=== PATIENT | female | born 1995 | race Caucasian/White ===

== ENCOUNTER 2018-05-10 10:52 | Inpatient (IN) | payer OTHER ==
[2018-05-10] MEDS ORDERED: SODIUM CHLORIDE 0.9% 1,000 ML IV STA (11:36)
[2018-05-10] MEDS ORDERED: MAG HYDROX/AL HYDROX/SIMETH 30 ML CUP PO STA (11:47)
[2018-05-10] MEDS ORDERED: SODIUM CHLORIDE 0.9% 1,000 ML IV ONE (11:47)
[2018-05-10] MEDS ORDERED: METOCLOPRAMIDE 5 MG/ML 2 ML VIAL IVP STA (11:55)
--- NOTE | 2018-05-10 11:57 | ED ---
Abdominal Pain HPI - General Chief Complaint: Abdominal Pain Stated Complaint: upper side pain/19wks Time Seen by Provider: 05/10/18 11:36 Source: patient, RN notes reviewed Mode of arrival: ambulatory Limitations: no limitations - History of Present Illness Initial Comments: This a 23-year-old female presents emergency Department chief complaint of upper abdominal pain. Patient's that she's had on-and-off pain since . Patient states she's been vomiting for 2 days. Patient is currently A0 18 weeks with [employer] Dr. Otoole. Patient states that her [employer] did not feel this is related referred to her PCP who is concerned about her gallbladder. She has had some issues with her gallbladder in the past but improved when she was . Patient states that is not worsen. Patient does admit to a bad taste in her mouth and increased hiccups and reflux. Patient has no dysuria no hematuria denies any diarrhea constipation. Patient has no vaginal bleeding or vaginal discharge - Related Data Home Medications Medication Instructions Recorded Confirmed Acetaminophen Tab [Tylenol Tab] 325 mg PO Q4H PRN 05/10/18 05/10/18 Bca-Tdbs-Shakm Acid 1 cap PO HS 05/10/18 05/10/18 [-U Capsule (formulary)] Allergies Allergy/AdvReac Type Severity Reaction Status Date / Time amoxicillin Allergy Rash/Hives Verified 05/10/18 11:35 latex Allergy Unknown Verified 05/10/18 11:35 methylprednisolone Allergy Rapid Verified 05/10/18 11:35 [From Medrol] Heart Rate Review of Systems ROS Statement: Those systems with pertinent positive or pertinent negative responses have been documented in the HPI. ROS Other: All systems not noted in ROS Statement are negative. Past Medical History Past Medical History: Asthma Additional Past Medical History / Comment(s): Low blood sugar History of Any Multi-Drug Resistant Organisms: None Reported Past Surgical History: Tonsillectomy Past Psychological History: No Psychological Hx Reported Smoking Status: Former smoker Past Alcohol Use History: None Reported Past Drug Use History: None Reported General Exam Limitations: no limitations General appearance: alert, in no apparent distress Head exam: Present: atraumatic, normocephalic, normal inspection Respiratory exam: Present: normal lung sounds bilaterally. Absent: respiratory distress, wheezes, rales, rhonchi, stridor Cardiovascular Exam: Present: normal rhythm, tachycardia, normal heart sounds. Absent: systolic murmur, diastolic murmur, rubs, gallop, clicks GI/Abdominal exam: Present: soft, tenderness (Moderate epigastric and right upper quadrant tenderness), normal bowel sounds. Absent: distended, guarding, rebound, rigid Back exam: Absent: CVA tenderness (R), CVA tenderness (L) Skin exam: Present: warm, dry, intact, normal color. Absent: rash Course Vital Signs 05/10/18 11:09 Temperature 99.1 F Pulse Rate 111 H Respiratory 20 Rate Blood Pressure 147/77 O2 Sat by Pulse 99 Oximetry Medical Decision Making - Medical Decision Making 23-year-old female presented from for abdominal pain. Patient is slightly improved at this time though she has also which demonstrates gallbladder stone in the neck. Patient will be admitted to Dr. Toussaint's service. - Lab Data Result diagrams: 05/10/18 11:59 05/10/18 11:59 Lab Results 05/10/18 05/10/18 05/10/18 Range/Units 11:59 11:59 11:59 WBC 16.1 H (3.8-10.6) k/uL RBC 4.17 (3.80-5.40) m/uL Hgb 12.0 (11.4-16.0) gm/dL Hct 34.6 (34.0-46.0) % MCV 83.1 (80.0-100.0) fL MCH 28.8 (25.0-35.0) pg MCHC 34.7 (31.0-37.0) g/dL RDW 14.0 (11.5-15.5) % Plt Count 293 (150-450) k/uL Neutrophils % 77 % Lymphocytes % 17 % Monocytes % 3 % Eosinophils % 1 % Basophils % 0 % Neutrophils # 12.4 H (1.3-7.7) k/uL Lymphocytes # 2.8 (1.0-4.8) k/uL Monocytes # 0.5 (0-1.0) k/uL Eosinophils # 0.2 (0-0.7) k/uL Basophils # 0.1 (0-0.2) k/uL Sodium 138 (137-145) mmol/L Potassium 4.0 (3.5-5.1) mmol/L Chloride 105 (98-107) mmol/L Carbon Dioxide 25 (22-30) mmol/L Anion Gap 8 mmol/L BUN 5 L (7-17) mg/dL Creatinine 0.44 L (0.52-1.04) mg/dL Est GFR (CKD-EPI)AfAm >90 (>60 ml/min/1.73 sqM) Est GFR (CKD-EPI)NonAf >90 (>60 ml/min/1.73 sqM) Glucose 98 (74-99) mg/dL Calcium 9.2 (8.4-10.2) mg/dL Total Bilirubin 0.5 (0.2-1.3) mg/dL AST 21 (14-36) U/L ALT 28 (9-52) U/L Alkaline Phosphatase 68 (38-126) U/L Total Protein 6.8 (6.3-8.2) g/dL Albumin 3.9 (3.5-5.0) g/dL Lipase 45 (23-300) U/L Urine Color Light Yellow Urine Appearance Cloudy H (Clear) Urine pH 7.5 (5.0-8.0) Ur Specific [place] 1.008 (1.001-1.035) Urine Protein Negative (Negative) Urine Glucose (UA) Negative (Negative) Urine Ketones Negative (Negative) Urine Blood Negative (Negative) Urine Nitrite Negative (Negative) Urine Bilirubin Negative (Negative) Urine Urobilinogen <2.0 (<2.0) mg/dL Ur Leukocyte Esterase Large H (Negative) Urine WBC 11 H (0-5) /hpf Ur Squamous Epith Cells 22 H (0-4) /hpf Amorphous Sediment Occasional H (None) /hpf Urine Bacteria Rare H (None) /hpf Urine Mucus Rare H (None) /hpf Disposition Clinical Impression: Cholelithiasis, Disposition: ADMITTED IP TO THIS [facility] Condition: Stable Referrals: Nolan Alexander MD [Primary Care Provider] - 1-2 days
--- NOTE | 2018-05-10 13:08 | US ---
EXAMINATION TYPE: US gallbladder DATE OF EXAM: 05/10/2018 COMPARISON: NONE CLINICAL HISTORY: 23-year-old female Pain. Abdomen pain and N/V x 5 days, patient is 19 weeks pregnan t TECHNIQUE: Multiple sonographic images of the right upper quadrant are obtained. FINDINGS: EXAM MEASUREMENTS: Liver Length: 15.7 cm Gallbladder Wall: 0.3 cm CBD: 0.4 cm Right Kidney: 10.3 x 4.9 x 5.4 cm [employer] Chief notes:Difficult study due to patient motion Pancreas: visualized pancreatic head and neck shows no gross abnormality. Remainder is limited by ov erlying midline bowel gas Liver: wnl Gallbladder: low levels echoes seen within neck with possible 4 mm calculus at the neck. Wall border line thickened at 0.3cm. No surrounding fluid or abnormal hydropic change at this time. Evidence for sonographic Crowe's sign: yes CBD: visualized portions wnl, limited by overlying bowel gas Right Kidney: wnl IMPRESSION: Possible 4 mm calculus at the gallbladder neck. There is borderline gallbladder wall thickening at 3 mm. Sonographic Crowe sign is also reported positive. No abnormal hydropic change or surrounding flu id seen at this time. Further clinical correlation will be needed for possible early acute cholecysti tis. Consider short interval follow-up.
[2018-05-10 13:11] LABS: Basophils # (A) 0.1 k/uL (0-0.2); Basophils % (A) 0 %; Eosinophils # (A) 0.2 k/uL (0-0.7); Eosinophils % (A) 1 %; HCT 34.6 % (34.0-46.0); Lymphocytes # (A) 2.8 k/uL (1.0-4.8); Lymphocytes % (A) 17 %; MCH 28.8 pg (25.0-35.0); MCHC 34.7 g/dL (31.0-37.0); MCV 83.1 fL (80.0-100.0); Mean Platelet Volume 7.7; Monocytes # (A) 0.5 k/uL (0-1.0); Monocytes % (A) 3 %; Neutrophils # (A) 12.4 k/uL (1.3-7.7); Neutrophils % (A) 77 %; Platelet Count 293 k/uL (150-450); RBC 4.17 m/uL (3.80-5.40); WBC 16.1 k/uL (3.8-10.6)
[2018-05-10 13:15] LABS: ALT 28 U/L (9-52); AST 21 U/L (14-36); Albumin 3.9 g/dL (3.5-5.0); Alkaline Phosphatase 68 U/L (38-126); Anion Gap 8 mmol/L; Blood Urea Nitrogen 5 mg/dL (7-17); Calcium 9.2 mg/dL (8.4-10.2); Carbon Dioxide 25 mmol/L (22-30); Chloride 105 mmol/L (98-107); Glucose 98 mg/dL (74-99); Lipase 45 U/L (23-300); Sodium 138 mmol/L (137-145); Total Bilirubin 0.5 mg/dL (0.2-1.3); Total Protein 6.8 g/dL (6.3-8.2)
[2018-05-10 13:17] LABS: Amorphous Sediment,Urine Occasional /hpf; Appearance,Urine Cloudy (Clear); Bacteria,Urine Rare /hpf; Bilirubin,Urine Negative (Negative); Blood,Urine Negative (Negative); Color,Urine Light Yellow; Glucose,Urine (UA) Negative (Negative); Ketones,Urine Negative (Negative); Leukocyte Esterase,Urine Large (Negative); Mucus,Urine Rare /hpf; Nitrite,Urine Negative (Negative); PH, Urine 7.5 (5.0-8.0); Protein,Urine Negative (Negative); Specific Gravity,Urine 1.008 (1.001-1.035); Squamous Epithelial Cell,Urine 22 /hpf (0-4); Urobilinogen,Urine <2.0 mg/dL (<2.0); WBC,Urine 11 /hpf (0-5)
[2018-05-10] MEDS ORDERED: cefTRIAXone IN SWFI 1,000 MG/10 ML SYRINGE IVP STA (13:53)
[2018-05-10] MEDS ORDERED: SODIUM CHLORIDE 0.9% 1,000 ML IV SCH (14:00)
--- NOTE | 2018-05-10 15:09 | P.GSHP ---
History of Present Illness H&P Date: 05/10/18 Chief Complaint: nausea, vomiting CHIEF COMPLAINT: nausea/vomiting HISTORY OF PRESENT ILLNESS: 23-year-old female who is 19 weeks who presented to the ER with a chief complaint of nausea and vomiting. Patient states she saw her PCP this morning who did not think her symptoms were related to her and referred her to the emergency room. Patient states she was being worked up for a "bad gallbladder" in the past before she got . Patient states she has been vomiting since . Denies hematemesis. Reports intermittent right upper quadrant abdominal pain. She stat es this morning she was only able to eat 4 pieces of Captain [employer] cereal and then began feeling nauseous. She also reports heartburn over the past week that has not been present prior. Denies diarrhea or constipation. PAST MEDICAL HISTORY: See list. PAST SURGICAL HISTORY: See list. SOCIAL HISTORY: No illicit drug use. REVIEW OF SYSTEMS: CONSTITUTIONAL: Denies fever or chills. HEENT: Denies blurred vision, vision changes, or eye pain. Denies hemoptysis CARDIOVASCULAR: Denies chest pain or pressure. RESPIRATORY: No shortness of breath. GASTROINTESTINAL: Refer to HPI for pertinent findings HEMATOLOGIC: Denies bleeding disorders. GENITOURINARY: Denies any blood in urine. SKIN: Denies pruitis. Denies rash. PHYSICAL EXAM: VITAL SIGNS: Reviewed. GENERAL: Well-developed in no acute distress. HEENT: No sclera icterus. Extraocular movements grossly intact. Moist buccal mucosa. Head is atraumatic, normocephalic. ABDOMEN: Soft. Nondistended. Right upper quadrant tenderness. NEUROLOGIC: Alert and oriented. Cranial nerves II through XII grossly intact. IMAGING: US Gallbladder: possible 4 mm calculus at the gallbladder neck. borderline gallbladder wall thickening measuring 3mm. Sonographic Crowe sign is also reported positive. No abnormal hydropic change or surrounding fluid seen at this time. Further clinical correlation will be needed for possible early acute cholecystitis. ASSESSMENT: 1. Right upper quadrant abdominal pain, nausea, vomiting 2. Cholelithiasis, possible early acute cholecystitis 3. Leukocytosis 4. , patient reports 19 weeks PLAN: Case discussed with Dr. Toussaint. Patient to remain NPO. IV fluids at 100cc/hr. Patient will tentatively be scheduled for laparoscopic cholecystectomy tomorrow. Dr. Toussaint will reevaluate patient tomorrow morning. Repeat labs in a.m. Will consult Dr. Otoole, patients OBGYN. Nurse practitioner note has been reviewed by physician. Signing provider agrees with the documented findings, assessment, and plan of care. Past Medical History Past Medical History: Asthma Additional Past Medical History / Comment(s): Low blood sugar History of Any Multi-Drug Resistant Organisms: None Reported Past Surgical History: Tonsillectomy Past Psychological History: No Psychological Hx Reported Smoking Status: Former smoker Past Alcohol Use History: None Reported Past Drug Use History: None Reported Medications and Allergies Home Medications Medication Instructions Recorded Confirmed Type Acetaminophen Tab [Tylenol Tab] 325 mg PO Q4H PRN 05/10/18 05/10/18 History Yyp-Xhts-Pkbzb Acid 1 cap PO HS 05/10/18 05/10/18 History [-U Capsule (formulary)] Allergies Allergy/AdvReac Type Severity Reaction Status Date / Time amoxicillin Allergy Rash/Hives Verified 05/10/18 11:35 latex Allergy Unknown Verified 05/10/18 11:35 methylprednisolone Allergy Rapid Verified 05/10/18 11:35 [From Medrol] Heart Rate nitrofurantoin AdvReac Vomiting Verified 05/10/18 14:19 [From Macrobid] Surgical - Exam Vital Signs Temp Pulse Resp BP Pulse Ox 99.1 F 111 H 20 147/77 99 05/10/18 11:09 05/10/18 11:09 05/10/18 11:09 05/10/18 11:09 05/10/18 11:09 Results - Labs 05/10/18 11:59 05/10/18 11:59 Abnormal Lab Results - Last 24 Hours (Table) 05/10/18 05/10/18 05/10/18 Range/Units 11:59 11:59 11:59 WBC 16.1 H (3.8-10.6) k/uL Neutrophils # 12.4 H (1.3-7.7) k/uL BUN 5 L (7-17) mg/dL Creatinine 0.44 L (0.52-1.04) mg/dL Urine Appearance Cloudy H (Clear) Ur Leukocyte Esterase Large H (Negative) Urine WBC 11 H (0-5) /hpf Ur Squamous Epith Cells 22 H (0-4) /hpf Amorphous Sediment Occasional H (None) /hpf Urine Bacteria Rare H (None) /hpf Urine Mucus Rare H (None) /hpf Diabetes panel 05/10/18 Range/Units 11:59 Sodium 138 (137-145) mmol/L Potassium 4.0 (3.5-5.1) mmol/L Chloride 105 (98-107) mmol/L Carbon Dioxide 25 (22-30) mmol/L BUN 5 L (7-17) mg/dL Creatinine 0.44 L (0.52-1.04) mg/dL Glucose 98 (74-99) mg/dL Calcium 9.2 (8.4-10.2) mg/dL AST 21 (14-36) U/L ALT 28 (9-52) U/L Alkaline Phosphatase 68 (38-126) U/L Total Protein 6.8 (6.3-8.2) g/dL Albumin 3.9 (3.5-5.0) g/dL Calcium panel 05/10/18 Range/Units 11:59 Calcium 9.2 (8.4-10.2) mg/dL Albumin 3.9 (3.5-5.0) g/dL Pituitary panel 05/10/18 Range/Units 11:59 Sodium 138 (137-145) mmol/L Potassium 4.0 (3.5-5.1) mmol/L Chloride 105 (98-107) mmol/L Carbon Dioxide 25 (22-30) mmol/L BUN 5 L (7-17) mg/dL Creatinine 0.44 L (0.52-1.04) mg/dL Glucose 98 (74-99) mg/dL Calcium 9.2 (8.4-10.2) mg/dL Adrenal panel 05/10/18 Range/Units 11:59 Sodium 138 (137-145) mmol/L Potassium 4.0 (3.5-5.1) mmol/L Chloride 105 (98-107) mmol/L Carbon Dioxide 25 (22-30) mmol/L BUN 5 L (7-17) mg/dL Creatinine 0.44 L (0.52-1.04) mg/dL Glucose 98 (74-99) mg/dL Calcium 9.2 (8.4-10.2) mg/dL Total Bilirubin 0.5 (0.2-1.3) mg/dL AST 21 (14-36) U/L ALT 28 (9-52) U/L Alkaline Phosphatase 68 (38-126) U/L Total Protein 6.8 (6.3-8.2) g/dL Albumin 3.9 (3.5-5.0) g/dL
[2018-05-10] MEDS ORDERED: ACETAMINOPHEN TAB 325 MG TAB PO STA (16:05)
[2018-05-10 16:44] VITALS: BMI 31.8
[2018-05-10] MEDS: DEXTROSE 5%-0.9% NACL 1,000 ML IV SCH (17:37)
[2018-05-10] MEDS: CALCIUM CARBONATE 500 MG CHEWABLE PO PRN (20:58)
[2018-05-10] MEDS: ACETAMINOPHEN TAB 325 MG TAB PO PRN (22:55)
[2018-05-10] MEDS: ONDANSETRON 4 MG/2 ML VIAL IVP PRN (22:56)
[2018-05-11] MEDS: DEXTROSE 5%-0.9% NACL 1,000 ML IV SCH ×3 (03:06→23:04)
[2018-05-11] MEDS ORDERED: HYDROmorphone 0.5 MG/0.5 ML SYRINGE IVP PRN (05:10)
[2018-05-11] MEDS ORDERED: fentaNYL (PF) 50 MCG/ML 2 ML AMP IVP PRN (05:10)
[2018-05-11] MEDS ORDERED: MIDAZOLAM (PF) 2 MG/2 ML VIAL IV PRN (05:10)
[2018-05-11] MEDS: ACETAMINOPHEN TAB 325 MG TAB PO PRN ×3 (09:01→22:56)
[2018-05-11] MEDS: CALCIUM CARBONATE 500 MG CHEWABLE PO PRN ×2 (11:16→23:12)
[2018-05-11 12:11] LABS: Glucose,Whole Blood 114 mg/dL (75-99)
--- NOTE | 2018-05-11 12:16 | P.CON ---
Consult Note - . Consult date: 05/11/18 Assessment/Plan:: This is a 23-year-old white female 1 para 0 EDC 10/05/2018 at 19 weeks gestation. Patient presented to the emergency room yesterday with the complaint of substernal pain, nausea and vomiting for 6 days. Sonographic evaluation revealed a 4 mm stone in the gallbladder. Nurse practitioner for Dr. Tolliver saw the patient and cholecystectomy was discussed. Patient was admitted through the night and made nothing by mouth. She denies any vaginal bleeding. She is feeling movement. There are no complaints from the obstetric standpoint. Past medical history is significant for anxiety and depression, on no medications. She also has a history of asthma, using a Ventolin inhaler as needed. Patient has spina bifida occulta. Past surgical history tonsillectomy as a child, eustachian tubes placed in the ears as a child. Current medications vitamins daily, Ventolin inhaler 90 MCG's 1 puff every 6 hours when necessary. ALLERGIES include amoxicillin, Macrobid, seasonal ALLERGIES, and a Medrol Dosepak to which reports palpitations. Family history is significant for pulmonary embolism, congestive heart failure, hypertension. Social history patient is a certified nurse entry level marketing assistant, her boyfriend Regino is active in the , she sees a counselor for depression. She denies alcohol drug use or smoking. history is significant for blood type A+, rubella status immune. Pap smear, urine culture, hepatitis B surface antigen, HIV testing, gonorrhea and chlamydia cultures all negative. One-hour Glucola 133. Hemoglobin A1c 5.6. On exam this is a pleasant young female, she is 4 foot 10 inches, 147 pounds, blood pressure 112/60. The general physical exam is within normal limits. The chest was clear in all purdy. The cardiac exam reveals regular rate and rhythm without murmur click or rub. The breasts are large and pendulous, equal and symmetric bilaterally. The abdomen is soft, active bowel sounds. Fundus is 19- 20 weeks size, uterus is soft. Fetus is active. heart rate 143 in the right lower quadrant. Extremities reveal no edema, good peripheral pulses, normal range of motion. Impression: 19 week intrauterine with symptomatic cholelithiasis. Plan is for cholecystectomy later today per Dr. Dahl. Plan: I would recommend auscultation of heart tones in the recovery room such that patient can hear the baby's heartbeat. She has an appointment to follow-up with me in the office in one week, and then in 2 weeks as well. She will keep these appointments. Postoperative care as per Dr. Tolliver.
[2018-05-11] MEDS: LACTATED RINGERS 1,000 ML IV SCH (12:32)
[2018-05-11] MEDS ORDERED: IV FLUID CONTINUATION 1,000 ML IV ONE (13:24)
[2018-05-11] MEDS: DEXAMETHASONE SOD PHOSPHATE 10 MG/ML 1 ML VIAL IV ONE (14:58)
[2018-05-11] MEDS: ONDANSETRON 4 MG/2 ML VIAL IVP ONE (14:58)
[2018-05-11] MEDS: ONDANSETRON 4 MG/2 ML VIAL IVP PRN (15:48)
--- NOTE | 2018-05-11 15:54 | P.PN ---
Progress Note - Text Progress Note Date: 05/11/18 The patient was very upset after docked to the anesthesiologist regarding the risk of spontaneous with general anesthesia. She was quite hysterical in the preoperative hold area. The patient states that her pain is slightly improved. Given the fact that she is had some improvement her pain and emotional upset her procedure was canceled for today. The patient will be reevaluated in the a.m.
[2018-05-11] MEDS: diphenhydrAMINE 50 MG CAP PO PRN (23:04)
[2018-05-12] MEDS: ONDANSETRON 4 MG/2 ML VIAL IVP PRN ×2 (03:41→18:17)
[2018-05-12 07:39] LABS: Basophils # (A) 0.1 k/uL (0-0.2); Basophils % (A) 1 %; Eosinophils # (A) 0.2 k/uL (0-0.7); Eosinophils % (A) 2 %; HCT 29.8 % (34.0-46.0); HGB 10.5 gm/dL (11.4-16.0); Lymphocytes # (A) 1.9 k/uL (1.0-4.8); Lymphocytes % (A) 18 %; MCH 29.5 pg (25.0-35.0); MCHC 35.4 g/dL (31.0-37.0); MCV 83.4 fL (80.0-100.0); Mean Platelet Volume 7.7; Monocytes # (A) 0.5 k/uL (0-1.0); Monocytes % (A) 5 %; Neutrophils # (A) 7.8 k/uL (1.3-7.7); Neutrophils % (A) 74 %; Platelet Count 211 k/uL (150-450); RBC 3.58 m/uL (3.80-5.40); RDW 13.7 % (11.5-15.5); WBC 10.5 k/uL (3.8-10.6)
[2018-05-12 07:48] LABS: Anion Gap 7 mmol/L; Blood Urea Nitrogen 3 mg/dL (7-17); Calcium 8.7 mg/dL (8.4-10.2); Carbon Dioxide 24 mmol/L (22-30); Chloride 108 mmol/L (98-107); Glucose 111 mg/dL (74-99); Potassium 3.7 mmol/L (3.5-5.1); Sodium 139 mmol/L (137-145)
--- NOTE | 2018-05-12 08:19 | P.PN ---
Progress Note - Text Progress Note Date: 05/12/18 The patient still has complaints of significant epigastric and right upper quadrant pain. She states her pain is 8 out of 10 this morning. The patient will be scheduled for laparoscopic cholecystectomy. I went over the risks and benefits of surgery again. Patient seems to be less anxious morning.
[2018-05-12] MEDS: DEXTROSE 5%-0.9% NACL 1,000 ML IV SCH ×2 (08:56→18:17)
[2018-05-12] MEDS: LACTATED RINGERS 1,000 ML IV SCH (09:00)
[2018-05-12] MEDS ORDERED: IV FLUID CONTINUATION 1,000 ML IV ONE (10:22)
[2018-05-12] MEDS: ONDANSETRON 4 MG/2 ML VIAL IVP ONE (10:42)
[2018-05-12] MEDS: DEXAMETHASONE SOD PHOSPHATE 10 MG/ML 1 ML VIAL IV ONE (10:42)
[2018-05-12] MEDS ORDERED: PROPOFOL 10 MG/ML 20 ML VIAL IV ONE (12:27)
[2018-05-12] MEDS ORDERED: ROCURONIUM BROMIDE 10 MG/ML 10 ML VIAL IV ONE (12:27)
[2018-05-12] MEDS ORDERED: fentaNYL (PF) 50 MCG/ML 2 ML AMP ONE (12:27)
[2018-05-12] MEDS ORDERED: LIDOCAINE 1% INJ 10MG/ML (20 ML MDV) ONE (12:27)
[2018-05-12] MEDS ORDERED: BUPIVACAIN-EPI 0.5%-1:200,000 30 ML VIAL SQ ONE (12:32)
--- NOTE | 2018-05-12 13:09 | P.OP ---
Date of Procedure: 05/12/18 Preoperative Diagnosis: Cholecystitis Cholelithiasis Postoperative Diagnosis: Cholecystitis Cholelithiasis Procedure(s) Performed: Laparoscopic cholecystectomy Anesthesia: RANDI Surgeon: Jeet Toussaint Estimated Blood Loss (ml): 5 Pathology: other (Gallbladder) Condition: stable Disposition: PACU Description of Procedure: The patient was placed on the operating table. The patient received a general endotracheal tube anesthesia. The patients abdomen was prepped and draped in the usual sterile fashion. A renato in the skin was made left upper quadrant. The Veress needles placed. Cavity in the left upper quadrant. After adequate insufflation a 5 mm trocar was placed in the right lateral position. The laparoscope placed. Cavity. Next a 8 mm trochars placed in the epigastric position and then a 5 mm trocar was placed in the supraumbilical position. Care was taken to identify and preserve the uterus. The camera was then placed at the umbilicus and then the lateral 5 mm trochars placed. The patient's placed in the right side up reverse number position. The gallbladder was grasped in the fundus and infundibulum. Traction on the gallbladder was placed in the lateral and the cephalad positions. The triangle of Calot was visualized.. The cystic duct was bluntly dissected until the union of the cystic duct and common bile duct was seen. The cystic duct was then divided and sealed with the Harmonic scissors. A PDS Endoloop was then placed throughout the cystic duct stump. The cystic artery divided and sealed with the Harmonic scissors. The gallbladder was then removed from the liver bed using Harmonic scissors. The gallbladder was then extracted through the epigastric port site. Operative field was checked for any bleeding spots and Harmonic scissors was used to coagulate the liver bed. The abdomen was irrigated. The trocars were removed. The skin was closed using interrupted 3- 0 Vicryl suture. Dermabond dressing were applied. The patient tolerated the procedure well.
[2018-05-12] MEDS ORDERED: PROMETHAZINE INJ 25 MG/ML 1 ML VIAL IVPB ONE (13:40)
[2018-05-12] MEDS ORDERED: ACETAMINOPHEN IV (For NPO) 1,000 MG in EMPTY BAG 1 BAG IVPB ONE (18:30)
[2018-05-12] MEDS: HYDROmorphone 0.5 MG/0.5 ML SYRINGE IVP PRN (19:59)
[2018-05-12] MEDS: CALCIUM CARBONATE 500 MG CHEWABLE PO PRN (22:24)
[2018-05-13] MEDS: diphenhydrAMINE 50 MG CAP PO PRN (00:12)
[2018-05-13] MEDS: ACETAMINOPHEN TAB 325 MG TAB PO PRN ×2 (00:12→12:58)
[2018-05-13] MEDS: ONDANSETRON 4 MG/2 ML VIAL IVP PRN ×3 (00:12→17:05)
[2018-05-13] MEDS: DEXTROSE 5%-0.9% NACL 1,000 ML IV SCH ×2 (03:44→20:42)
[2018-05-13] MEDS: HYDROmorphone 0.5 MG/0.5 ML SYRINGE IVP PRN (03:45)
[2018-05-13] MEDS: LACTATED RINGERS 1,000 ML IV SCH (05:43)
[2018-05-13] MEDS ORDERED: HYDROcodone/APAP 5-325MG 1 EACH TAB PO PRN (09:46)
--- NOTE | 2018-05-13 09:52 | P.PN ---
Subjective Progress Note Date: 05/13/18 Principal diagnosis: Acute cholecystitis, 19 weeks intrauterine The patient underwent uncomplicated laparoscopic cholecystectomy yesterday. She continues to have some nausea today as well as some difficulty controlling pain without IV narcotics. Her nausea consists of both significant heartburn as well as the nausea itself and may be related to gastroesophageal reflux in my estimation. She denies any concerns at this time. Objective - Vital Signs Vital signs: Vital Signs Temp 99.2 F 05/13/18 08:05 Pulse 97 05/13/18 07:00 Resp 18 05/13/18 07:26 BP 125/72 05/13/18 07:00 Pulse Ox 97 05/13/18 07:00 Intake & Output 05/12/18 05/13/18 05/13/18 18:59 06:59 18:59 Intake Total 400 Output Total 15 Balance 385 Intake: IV 400 Output: Emesis 10 Estimated Blood Loss 5 Other: Voiding Method Toilet # Voids 2 1 # Emeses 1 - Exam In general, this is a well-developed, well-nourished white female in no acute distress. Her abdomen is soft and nontender aside from appropriate postsurgical tenderness. The incisions were not examined. Uterine fundus is soft and nonte nder. Extremities demonstrate no significant cyanosis clubbing or edema and are nontender to palpation bilaterally. - Labs CBC & Chem 7: 05/12/18 07:17 05/12/18 07:17 Labs: Microbiology - Last 24 Hours (Table) 05/10/18 14:16 Blood Culture - Preliminary Blood No Growth after 48 hours Assessment and Plan (1) Cholecystitis Current Visit: Yes Status: Acute Code(s): K81.9 - CHOLECYSTITIS, UNSPECIFIED SNOMED Code(s): 86301394 (2) Current Visit: Yes Status: Acute Code(s): Z34.90 - ENCNTR FOR SUPRVSN OF NORMAL , UNSP, UNSP TRIMESTER SNOMED Code(s): 41555975 Plan: The patient is status post uncomplicated cholecystectomy. I will start Pepcid through her IV currently in order to attempt to alleviate her reflux symptoms and she certainly could be managed in the outpatient with omeprazole 40 mg daily or the OTC dose of 20 mg daily prior to being seen next week in our office. I have strongly encouraged her to try oral pain medications as I would anticipate discharge home later today. As result, [place] 5/325 mg has been ordered, 1-2 by mouth every 4-6 hours when necessary pain. She will undoubtedly require short- term continuation of narcotic pain control following surgery over the next several days. She is to follow-up in our office as scheduled on Wednesday for ultrasound and within the next several days with Dr. Otoole.
--- NOTE | 2018-05-13 10:17 | P.PN ---
Subjective Progress Note Date: 05/13/18 CHIEF COMPLAINT: nausea/vomiting HISTORY OF PRESENT ILLNESS: Patient is status post laparoscopic cholecystectomy. POD #1. Patient seen and examined this morning. Patient states she was nauseous most of the day yesterday and overnight with multiple episodes of emesis. No further episodes of emesis this morning. She is currently eating Cheerios and drinking tea. She reports her pain was severe overnight and required IV narcotics. Patient has been ambulating. Vital signs are stable. Temp 99.2 this morning. PHYSICAL EXAM: VITAL SIGNS: Reviewed. GENERAL: Well-developed in no acute distress. HEENT: No sclera icterus. Extraocular movements grossly intact. Moist buccal mucosa. Head is atraumatic, normocephalic. ABDOMEN: Soft. Nondistended. Surgical incision sites clean dry and intact. NEUROLOGIC: Alert and oriented. Cranial nerves II through XII grossly intact. ASSESSMENT: 1. Right upper quadrant abdominal pain, nausea, vomiting 2. Cholelithiasis/cholecystitis, s/p laparoscopic cholecystectomy 3. Leukocytosis 4. , patient reports 19 weeks PLAN: 1. Pain control. Attempt to reduce IV narcotic use. 2. Activity as tolerated 3. Incentive spirometry 4. Diet as tolerated 5. OBGYN on consult. Appreciate input Nurse practitioner note has been reviewed by physician. Signing provider agrees with the documented findings, assessment, and plan of care. Objective - Vital Signs Vital signs: Vital Signs Temp 99.2 F 05/13/18 08:05 Pulse 97 05/13/18 07:00 Resp 18 05/13/18 07:26 BP 125/72 05/13/18 07:00 Pulse Ox 97 05/13/18 07:00 Intake & Output 05/12/18 05/13/18 05/13/18 18:59 06:59 18:59 Intake Total 400 Output Total 15 Balance 385 Intake: IV 400 Output: Emesis 10 Estimated Blood Loss 5 Other: Voiding Method Toilet # Voids 2 1 # Emeses 1 - Labs CBC & Chem 7: 05/12/18 07:17 05/12/18 07:17 Labs: Microbiology - Last 24 Hours (Table) 05/10/18 14:16 Blood Culture - Preliminary Blood No Growth after 48 hours
[2018-05-13] MEDS: FAMOTIDINE 20 MG/2 ML VIAL IV SCH ×2 (10:50→21:38)
[2018-05-13] MEDS: diphenhydrAMINE 25 MG CAP PO PRN ×2 (12:56→22:51)
[2018-05-13] MEDS: HYDROcodone/APAP 5-325MG 1 EACH TAB PO PRN (17:01)
[2018-05-14] MEDS: HYDROcodone/APAP 5-325MG 1 EACH TAB PO PRN ×2 (02:03→09:59)
[2018-05-14] MEDS: LACTATED RINGERS 1,000 ML IV SCH (06:04)
[2018-05-14] MEDS: DEXTROSE 5%-0.9% NACL 1,000 ML IV SCH (06:13)
[2018-05-14] MEDS: FAMOTIDINE 20 MG/2 ML VIAL IV SCH (08:41)
[2018-05-14 08:53] VITALS: BP 107/70; PULSE 81; RESP 16; TEMP 98.3
--- NOTE | 2018-05-14 09:15 | P.PN ---
Subjective Progress Note Date: 05/14/18 Principal diagnosis: IUP 19 weeks s/p Lap vero. this very pleasant 23-year-old 1 para 0 presented with symptoms of cholecystitis and was subsequently taken to the OR for lap vero. Patient is doing well this morning. She states her pain is well-controlled. She is am bulating and voiding without difficulty. She is tolerating a regular diet this morning without nausea or vomiting. Objective - Vital Signs Vital signs: Vital Signs Temp 98.3 F 05/14/18 08:07 Pulse 81 05/14/18 08:07 Resp 16 05/14/18 08:07 BP 107/70 05/14/18 08:07 Pulse Ox 99 05/14/18 08:07 Intake & Output 05/13/18 05/14/18 05/14/18 18:59 06:59 18:59 Intake Total 210 300 Balance 210 300 Intake: Oral 210 300 Other: Voiding Method Toilet Toilet # Voids 2 # Emeses 1 - Constitutional General appearance: Present: average body habitus, cooperative, no acute distress - Psychiatric Psychiatric: Present: A&O x's 3, appropriate affect, intact judgment & insight - Labs CBC & Chem 7: 05/12/18 07:17 05/12/18 07:17 Labs: Microbiology - Last 24 Hours (Table) 05/10/18 14:16 Blood Culture - Preliminary Blood No Growth after 72 hours Assessment and Plan (1) S/P laparoscopic cholecystectomy Current Visit: Yes Status: Acute Code(s): Z90.49 - ACQUIRED ABSENCE OF OTHER SPECIFIED PARTS OF DIGESTIVE TRACT SNOMED Code(s): 979103741 (2) Cholelithiasis Current Visit: Yes Status: Acute Code(s): K80.20 - CALCULUS OF GALLBLADDER W/O CHOLECYSTITIS W/O OBSTRUCTION SNOMED Code(s): 102258084 (3) Current Visit: Yes Status: Acute Code(s): Z34.90 - ENCNTR FOR SUPRVSN OF NORMAL , UNSP, UNSP TRIMESTER SNOMED Code(s): 34237616 Plan: okay for discharge from an obstetric point of view. She will follow up Wednesday with Dr. Bertrand as scheduled for her anatomy ultrasound.
--- NOTE | 2018-05-14 10:19 | P.DS ---
Providers Date of admission: 05/10/18 13:43 Expected date of discharge: 05/14/18 Attending physician: Jeet Toussaint Consults: 05/10/18 14:55 Consult Physician Routine Consulting Provider: Livier Otoole Consult Reason/Comments: 19 weeks , pt known to you, cholelithiasis Do you want consulting provider notified?: Yes Primary care physician: Nolan Alexander Procedures: Laparoscopic cholecystectomy Patient Condition at Discharge: Stable Plan - Discharge Summary Discharge Rx Participant: Yes New Discharge Prescriptions: No Action Awh-Lxsk-Zwoqf Acid [-U Capsule (formulary)] 1 cap PO HS Acetaminophen Tab [Tylenol Tab] 325 mg PO Q4H PRN PRN Reason: Pain Discharge Medication List Acetaminophen Tab [Tylenol Tab] 325 mg PO Q4H PRN 05/10/18 [History] Qex-Xzex-Ashyk Acid [-U Capsule (formulary)] 1 cap PO HS 05/10 [History] Follow up Appointment(s)/Referral(s): Nolan Alexander MD [Primary Care Provider] - 1-2 days Jeet Toussaint MD [STAFF PHYSICIAN] - 1 Week Patient Instructions/Handouts: *[facility] - Laparoscopic Cholecystectomy Discharge Instructions, *[facility] - ([facility]) Laparoscopic Cholecystectomy Activity/Diet/Wound Care/Special Instructions: Call Dr. Toussaint on Wednesday to schedule appointment Low fat diet for a week. Last pain pill was given at 1000am You may shower daily. Report any uncontrolled pain, fever over 100.5, any drainage from incisions, or any concerns. Follow up next week with your OB as previously scheduled. No lifting over ten pounds. No driving while on pain medicine. No working for two weeks or until released by Dr. Toussaint
== END 2018-05-14 10:10 | disposition home or self-care (01) | DRG 818 ==
LOC: EC 10:52 → 6PED 13:43
PROVIDERS: ADMIT Surgery; ATTEND Surgery
PROC: 0FT44ZZ Resection of Gallbladder, Percutaneous Endoscopic Approach (ICD-10-PCS; principal; 2018-05-12 11:40)
DX: O26.612 Liver and biliary tract disorders in pregnancy, second trimester (principal); K80.00 Calculus of gallbladder with acute cholecystitis without obstruction; O99.612 Diseases of the digestive system complicating pregnancy, second trimester; K21.9 Gastro-esophageal reflux disease without esophagitis; O99.512 Diseases of the respiratory system complicating pregnancy, second trimester; J45.909 Unspecified asthma, uncomplicated; Z3A.19 19 weeks gestation of pregnancy; Z82.49 Family history of ischemic heart disease and other diseases of the circulatory system; Z87.891 Personal history of nicotine dependence; Q76.0 Spina bifida occulta; Z88.0 Allergy status to penicillin; Z88.1 Allergy status to other antibiotic agents; Z91.040 Latex allergy status
CPT/HCPCS: 36415; 76705; 80048; 80053; 81001; 83690; 85025; 87040; 88304; 96361; 96374; 96375; 99285

== ENCOUNTER 2018-05-18 18:17 | Emergency (ER) | payer OTHER ==
[2018-05-18 18:46] VITALS: TEMP 99.2
[2018-05-18] MEDS ORDERED: SODIUM CHLORIDE 0.9% 2,000 ML IV STA (19:42)
[2018-05-18] MEDS ORDERED: ONDANSETRON 4 MG/2 ML VIAL IVP STA (19:42)
--- NOTE | 2018-05-18 19:45 | ED ---
Nausea/Vomiting/Diarrhea HPI - General Source: patient, RN notes reviewed Mode of arrival: ambulatory Limitations: no limitations <Danie Singer - Last Filed: 05/18/18 19:42> <Vanessa Pedroza - Last Filed: 05/18/18 23:56> - General Chief complaint: Nausea/Vomiting/Diarrhea Stated complaint: Vomiting Time Seen by Provider: 05/18/18 19:34 - History of Present Illness Initial comments: 23-year-old female sent emergency Department with chief complaint of abdominal pain, nausea vomiting. Patient is status post cholecystectomy by Dr. Toussaint 6 days ago. Patient also is 20 weeks . Patient states she ate some pizza last night states that she's had pain and vomiting throughout the night and today. Patient states she is concerned about dehydration. Patient reports no fever or chills. Patient did take some pain medication as prescribed by Dr. Toussaint. Patient also noted to have a red streak in her left arm yesterday was given clindamycin by PCP states that she took a dose this is also made her sick. Patient states she stopped it. Patient denies any vaginal bleeding or vaginal discharge. She has no current dysuria or hematuria. (Danie Singer) - Related Data Home Medications Medication Instructions Recorded Confirmed Acetaminophen Tab [Tylenol Tab] 325 mg PO Q4H PRN 05/10/18 05/18/18 Vjl-Ored-Aampc Acid 1 cap PO HS 05/10/18 05/18/18 [-U Capsule (formulary)] Cetirizine HCl [Zyrtec] 10 mg PO DAILY 05/18/18 05/18/18 Clindamycin HCl [Cleocin] 300 mg PO Q8HR 05/18/18 05/18/18 HYDROcodone/APAP 5-325MG [[place] 1 tab PO Q6HR 05/18/18 05/18/18 5-325] Ranitidine HCl [Zantac] 150 mg PO DAILY 05/18/18 05/18/18 Previous Rx's Medication Instructions Recorded Cephalexin [Keflex] 500 mg PO Q6H #20 cap 05/18/18 Metoclopramide [Reglan] 10 mg PO Q8H PRN #10 tab 05/18/18 Allergies Allergy/AdvReac Type Severity Reaction Status Date / Time amoxicillin Allergy Rash/Hives Verified 05/18/18 18:46 latex Allergy Unknown Verified 05/18/18 18:46 methylprednisolone Allergy Rapid Verified 05/18/18 18:46 [From Medrol] Heart Rate monosodium glutamate [MSG] Allergy Nausea & Verified 05/18/18 18:46 Vomiting & Diarrhea nitrofurantoin AdvReac Vomiting Verified 05/18/18 18:46 [From Macrobid] tape AdvReac Itching Uncoded 05/18/18 18:46 Review of Systems ROS Other: All systems not noted in ROS Statement are negative. <Danie Singer - Last Filed: 05/18/18 19:42> ROS Other: All systems not noted in ROS Statement are negative. <Vanessa Pedroza - Last Filed: 05/18/18 23:56> ROS Statement: Those systems with pertinent positive or pertinent negative responses have been documented in the HPI. Past Medical History Past Medical History: Asthma Additional Past Medical History / Comment(s): Low blood sugar History of Any Multi-Drug Resistant Organisms: None Reported Past Surgical History: Tonsillectomy Past Anesthesia/Blood Transfusion Reactions: No Reported Reaction Past Psychological History: No Psychological Hx Reported Smoking Status: Former smoker Past Alcohol Use History: None Reported Past Drug Use History: None Reported - Past Family History Mother Additional Family Medical History / Comment(s): vero <Danie Singer - Last Filed: 05/18/18 19:42> General Exam Limitations: no limitations General appearance: alert, in no apparent distress Head exam: Present: atraumatic, normocephalic, normal inspection Eye exam: Present: normal appearance, PERRL, EOMI. Absent: scleral icterus, conjunctival injection, periorbital swelling ENT exam: Present: normal exam, normal oropharynx, mucous membranes moist Neck exam: Present: normal inspection, full ROM. Absent: tenderness, m eningismus, lymphadenopathy Respiratory exam: Present: normal lung sounds bilaterally. Absent: respiratory distress, wheezes, rales, rhonchi, stridor Cardiovascular Exam: Present: normal rhythm, tachycardia, normal heart sounds. Absent: systolic murmur, diastolic murmur, rubs, gallop, clicks GI/Abdominal exam: Present: soft, tenderness (Mild epigastric, right upper quadrant), normal bowel sounds, other (Incisions are closed, no erythema no drainage). Absent: distended, guarding, rebound, rigid Back exam: Absent: CVA tenderness (R), CVA tenderness (L) Skin exam: Present: warm, dry, intact, normal color. Absent: rash <Danie Singer - Last Filed: 05/18/18 19:42> Course Vital Signs 05/18/18 05/18/18 18:44 21:56 Temperature 99.2 F Pulse Rate 113 H 91 Respiratory 16 18 Rate Blood Pressure 137/83 133/91 O2 Sat by Pulse 98 99 Oximetry Medical Decision Making - Lab Data Result diagrams: 05/18/18 19:51 05/18/18 19:51 <Vanessa Pedroza - Last Filed: 05/18/18 23:56> - Medical Decision Making 23-year-old female patient presents to the emergency department today for evaluation of upper abdominal discomfort and vomiting. Patient did have cholecystectomy by Dr. Toussaint 6 days ago. Patient does not eating pizza last night and having increased symptoms since then. Patient states she has vomited several times today. Physical examination is unremarkable. Care was handed over to me by JUWAN Quintana. I did review labs which were unremarkable. Urinalysis did show evidence of bacteria, this will be sent for culture and she will be treated for bacteriuria in . heart tones were satisfactory. We did advise a more bland, low-fat diet. She will be given prescription for Reglan. She is instructed to follow-up with her primary care physician for recheck in 1-2 days. She does have an appointment with her surgeon tomorrow. She has a plan to follow up with her [employer] OF [employer]CH[employer] on the . Return parameters were discussed in detail. She verbalizes understanding and agrees with this plan. (Vanessa Pedroza) - Lab Data Lab Results 05/18/18 05/18/18 05/18/18 Range/Units 19:51 19:51 20:58 WBC 14.8 H (3.8-10.6) k/uL RBC 4.06 (3.80-5.40) m/uL Hgb 11.9 (11.4-16.0) gm/dL Hct 34.1 (34.0-46.0) % MCV 83.8 (80.0-100.0) fL MCH 29.2 (25.0-35.0) pg MCHC 34.8 (31.0-37.0) g/dL RDW 13.9 (11.5-15.5) % Plt Count 274 (150-450) k/uL Neutrophils % 73 % Lymphocytes % 20 % Monocytes % 4 % Eosinophils % 2 % Basophils % 0 % Neutrophils # 10.8 H (1.3-7.7) k/uL Lymphocytes # 3.0 (1.0-4.8) k/uL Monocytes # 0.5 (0-1.0) k/uL Eosinophils # 0.2 (0-0.7) k/uL Basophils # 0.1 (0-0.2) k/uL Sodium 137 (137-145) mmol/L Potassium 3.8 (3.5-5.1) mmol/L Chloride 107 (98-107) mmol/L Carbon Dioxide 22 (22-30) mmol/L Anion Gap 8 mmol/L BUN 4 L (7-17) mg/dL Creatinine 0.36 L (0.52-1.04) mg/dL Est GFR (CKD-EPI)AfAm >90 (>60 ml/min/1.73 sqM) Est GFR (CKD-EPI)NonAf >90 (>60 ml/min/1.73 sqM) Glucose 82 (74-99) mg/dL Calcium 9.6 (8.4-10.2) mg/dL Total Bilirubin 0.4 (0.2-1.3) mg/dL AST 17 (14-36) U/L ALT 25 (9-52) U/L Alkaline Phosphatase 71 (38-126) U/L Total Protein 6.7 (6.3-8.2) g/dL Albumin 3.6 (3.5-5.0) g/dL Amylase 52 (30-110) U/L Lipase 41 (23-300) U/L Urine Color Light Yellow Urine Appearance Cloudy H (Clear) Urine pH 7.0 (5.0-8.0) Ur Specific [place] 1.009 (1.001-1.035) Urine Protein Negative (Negative) Urine Glucose (UA) Negative (Negative) Urine Ketones Negative (Negative) Urine Blood Negative (Negative) Urine Nitrite Negative (Negative) Urine Bilirubin Negative (Negative) Urine Urobilinogen <2.0 (<2.0) mg/dL Ur Leukocyte Esterase Moderate H (Negative) Ur Squamous Epith Cells 8 H (0-4) /hpf Urine Bacteria Rare H (None) /hpf Hyaline Casts 4 H (0-2) /lpf Urine Mucus Rare H (None) /hpf Urine Yeast (Budding) Many H (None) /hpf Disposition <Danie Singer M - Last Filed: 05/18/18 19:42> Is patient prescribed a controlled substance at d/c from ED?: No Time of Disposition: 22:33 <Vanessa Pedroza M - Last Filed: 05/18/18 23:56> Clinical Impression: Vomiting Disposition: HOME SELF-CARE Condition: Good Instructions (If sedation given, give patient instructions): Acute Nausea and Vomiting (ED) Additional Instructions: Start with clear liquid diet and advance as tolerated. Take nausea medication as directed. Follow-up with her surgeon tomorrow as you have planned. Follow up with her [employer] for recheck as soon as possible. Return to the emergency department immediately for any new, worsening, or concerning symptoms Prescriptions: Metoclopramide [Reglan] 10 mg PO Q8H PRN #10 tab PRN Reason: Vomiting Referrals: Nolan Alexander MD [Primary Care Provider] - 1-2 days
[2018-05-18 20:22] LABS: Basophils # (A) 0.1 k/uL (0-0.2); Basophils % (A) 0 %; Eosinophils # (A) 0.2 k/uL (0-0.7); Eosinophils % (A) 2 %; HCT 34.1 % (34.0-46.0); HGB 11.9 gm/dL (11.4-16.0); Lymphocytes % (A) 20 %; MCH 29.2 pg (25.0-35.0); MCHC 34.8 g/dL (31.0-37.0); MCV 83.8 fL (80.0-100.0); Mean Platelet Volume 7.7; Monocytes # (A) 0.5 k/uL (0-1.0); Monocytes % (A) 4 %; Neutrophils # (A) 10.8 k/uL (1.3-7.7); Neutrophils % (A) 73 %; Platelet Count 274 k/uL (150-450); RBC 4.06 m/uL (3.80-5.40); RDW 13.9 % (11.5-15.5); WBC 14.8 k/uL (3.8-10.6)
[2018-05-18 20:31] LABS: ALT 25 U/L (9-52); AST 17 U/L (14-36); Albumin 3.6 g/dL (3.5-5.0); Alkaline Phosphatase 71 U/L (38-126); Amylase 52 U/L (30-110); Anion Gap 8 mmol/L; Blood Urea Nitrogen 4 mg/dL (7-17); Calcium 9.6 mg/dL (8.4-10.2); Carbon Dioxide 22 mmol/L (22-30); Chloride 107 mmol/L (98-107); Glucose 82 mg/dL (74-99); Lipase 41 U/L (23-300); Potassium 3.8 mmol/L (3.5-5.1); Sodium 137 mmol/L (137-145); Total Bilirubin 0.4 mg/dL (0.2-1.3); Total Protein 6.7 g/dL (6.3-8.2)
[2018-05-18 21:12] LABS: Appearance,Urine Cloudy (Clear); Bacteria,Urine Rare /hpf; Bilirubin,Urine Negative (Negative); Blood,Urine Negative (Negative); Budding Yeast,Urine Many /hpf; Color,Urine Light Yellow; Glucose,Urine (UA) Negative (Negative); Hyaline Casts,Urine 4 /lpf (0-2); Ketones,Urine Negative (Negative); Leukocyte Esterase,Urine Moderate (Negative); Mucus,Urine Rare /hpf; Nitrite,Urine Negative (Negative); Protein,Urine Negative (Negative); Specific Gravity,Urine 1.009 (1.001-1.035); Squamous Epithelial Cell,Urine 8 /hpf (0-4); Urobilinogen,Urine <2.0 mg/dL (<2.0)
[2018-05-18] MEDS ORDERED: FAMOTIDINE 20 MG/2 ML VIAL IV STA (21:27)
[2018-05-18] MEDS ORDERED: CEPHALEXIN 500MG STARTER PACK 4 CAP BTL PO STA (21:27)
[2018-05-18 21:57] VITALS: BP 133/91; PULSE 91; RESP 18
== END 2018-05-18 22:54 | disposition home or self-care (01) ==
LOC: EC 18:17
DX: O21.9 Vomiting of pregnancy, unspecified (principal); O99.89 Other specified diseases and conditions complicating pregnancy, childbirth and the puerperium; R10.816 Epigastric abdominal tenderness; R10.811 Right upper quadrant abdominal tenderness; Z3A.20 20 weeks gestation of pregnancy; Z79.899 Other long term (current) drug therapy; Z88.0 Allergy status to penicillin; Z91.040 Latex allergy status; Z88.1 Allergy status to other antibiotic agents; Z91.018 Allergy to other foods; Z88.8 Allergy status to other drugs, medicaments and biological substances; Z91.09 Other allergy status, other than to drugs and biological substances; Z87.891 Personal history of nicotine dependence; Z90.49 Acquired absence of other specified parts of digestive tract
CPT/HCPCS: 36415; 80053; 82150; 83690; 85025; 81001; 87086; 99284; 96374; 96375; 96361 ×2; J2405

== ENCOUNTER 2018-07-31 22:08 | Emergency (ER) | payer OTHER ==
[2018-07-31 22:12] VITALS: TEMP 98.9
[2018-07-31] MEDS ORDERED: SODIUM CHLORIDE 0.9% 1,000 ML IV STA (22:27)
[2018-07-31] MEDS ORDERED: MAG HYDROX/AL HYDROX/SIMETH 30 ML, HYOSCYAMINE ELIXIR 10 ML, CIMETIDINE HCL 300 MG, LID... PO STA ×4 (22:28)
--- NOTE | 2018-07-31 23:01 | ED ---
Chest Pain HPI - General Source: patient, family, RN notes reviewed, old records reviewed Mode of arrival: ambulatory Limitations: no limitations <Mariela Singh - Last Filed: 08/01/18 00:52> <Peggy Quevedo - Last Filed: 08/01/18 02:53> - General Chief Complaint: Chest Pain Stated Complaint: Chest pain Time Seen by Provider: 07/31/18 22:17 - History of Present Illness Initial Comments: Patient is a 23-year-old female, currently 31 weeks . She presents today after multiple episodes of vomiting. She complains of some chest pain. 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 She possible PE. She denies any significant shortness of breath. Patient reports that her pain does seem to be reproducible to palpation. She states it could be from multiple episodes of vomiting. She denies any concern for acid reflux at this time. Patient states she has abdominal pain. (Mariela Singh) - Related Data Home Medications Medication Instructions Recorded Confirmed Ytd-Nwcm-Oxred Acid 1 cap PO HS 05/10/18 07/31/18 [-U Capsule (formulary)] Previous Rx's Medication Instructions Recorded Albuterol Inhaler [Ventolin Hfa 1 - 2 puff INHALATION RT-Q6H PRN 08/01/18 Inhaler] #1 inhaler Famotidine [Pepcid] 20 mg PO BID #20 tablet 08/01/18 Allergies Allergy/AdvReac Type Severity Reaction Status Date / Time amoxicillin Allergy Rash/Hives Verified 07/31/18 22:55 latex Allergy Unknown Verified 07/31/18 22:55 methylprednisolone Allergy Rapid Verified 07/31/18 22:55 [From Medrol] Heart Rate monosodium glutamate [MSG] Allergy Nausea & Verified 07/31/18 22:55 Vomiting & Diarrhea nitrofurantoin AdvReac Vomiting Verified 07/31/18 22:55 [From Macrobid] tape AdvReac Itching Uncoded 07/31/18 22:12 Review of Systems ROS Other: All systems not noted in ROS Statement are negative. <Mariela Singh - Last Filed: 08/01/18 00:52> ROS Other: All systems not noted in ROS Statement are negative. <Peggy Quevedo - Last Filed: 08/01/18 02:53> ROS Statement: Those systems with pertinent positive or pertinent negative responses have been documented in the HPI. EKG Findings - EKG Comments: EKG Findings:: EKG performed at 2232 shows sinus tachycardia otherwise normal EKG. Ventricular rate of 104 bpm period. Vitals 144 most seconds. QTQTC is a 34/439 ms. QS duration 80 ms. No evidence of ST elevation. <Mariela Singh - Last Filed: 08/01/18 00:52> Past Medical History Past Medical History: Asthma Additional Past Medical History / Comment(s): Low blood sugar History of Any Multi-Drug Resistant Organisms: None Reported Past Surgical History: Tonsillectomy Past Anesthesia/Blood Transfusion Reactions: No Reported Reaction Past Psychological History: No Psychological Hx Reported Smoking Status: Former smoker Past Alcohol Use History: None Reported Past Drug Use History: None Reported - Past Family History Mother Additional Family Medical History / Comment(s): vero <Mariela Singh - Last Filed: 08/01/18 00:52> General Exam Limitations: no limitations General appearance: alert, in no apparent distress Head exam: Present: atraumatic, normocephalic, normal inspection Eye exam: Present: normal appearance, PERRL, EOMI. Absent: scleral icterus, conjunctival injection, periorbital swelling ENT exam: Present: normal exam Neck exam: Present: normal inspection. Absent: tenderness, meningismus, lymphadenopathy Respiratory exam: Present: normal lung sounds bilaterally, other (tender to palpation over sternum). Absent: respiratory distress, wheezes, rales, rhonchi, stridor Cardiovascular Exam: Present: regular rate, normal rhythm, normal heart sounds. Absent: systolic murmur, diastolic murmur, rubs, gallop, clicks GI/Abdominal exam: Present: soft, normal bowel sounds. Absent: distended, tenderness, guarding, rebound, rigid Extremities exam: Present: normal inspection, full ROM, normal capillary refill. Absent: tenderness, pedal edema, joint swelling, calf tenderness Back exam: Present: normal inspection Neurological exam: Present: alert, oriented X3, CN II-XII intact Psychiatric exam: Present: normal affect, normal mood Skin exam: Present: warm, dry, intact, normal color. Absent: rash <Mariela Singh - Last Filed: 08/01/18 00:52> - General Exam Comments Initial Comments: Alert and oriented 23-year-old female. No distress. (Mariela Singh) Course Vital Signs 07/31/18 07/31/18 07/31/18 22:08 22:37 22:39 Temperature 98.9 F Pulse Rate 108 H 114 H 103 H Respiratory 22 11 L 16 Rate Blood Pressure 149/73 126/75 O2 Sat by Pulse 97 96 Oximetry 07/31/18 07/31/18 07/31/18 22:48 23:00 23:10 Temperature Pulse Rate 101 H 110 H Respiratory 16 12 20 Rate Blood Pressure 126/75 O2 Sat by Pulse 94 L Oximetry 07/31/18 08/01/18 23:30 00:15 Temperature Pulse Rate 98 Respiratory 18 Rate Blood Pressure 126/75 121/70 O2 Sat by Pulse 96 Oximetry Chest Pain MDM <Mariela Singh - Last Filed: 08/01/18 00:52> <Peggy Quevedo - Last Filed: 08/01/18 02:53> - MDM is a 31 week 23-year-old female, with history of shortness of breath, and reproducible chest pain. I do believe patient's pain seems to muscle skeletal nature from multiple episodes of vomiting today. She also states he may trigger after she was sitting on a campfire she's camping today. Her lungs were relatively clear. She was given albuterol treatment and GI cocktail states that her pain is diminished after those medications. Discussed with the family history of PEs and history of there is high suspicion for possible PE. And she underwent EKG which is negative for any acute process. Negative troponin test. CT [facility] chest for PE was completed after discussing risks and benefits with Patient. She agrees to undergo the computed tomography scan. Patient CT results of the nondiagnostic as Patient was moving during CT. Patient symptoms didn't diminished after the medications therefore unlikely related to PE and again patient's chest pain does seem to be reproducible. Patient will be discharged at this time with a prescription for albuterol as well as Pepcid for acid reflux. Discussed close follow-up with her DRIVER LICENSE TECHNICIAN and primary care doctor. Discussed if there is any worsening chest pain or dyspnea to return for reevaluation. (Mariela Singh) I was available for consultation in the emergency department. The history and physical exam were done by the midlevel provider. I was consulted for this patient's care. I reviewed the case with the midlevel provider and based on their presentation of the patient, I agree with the assessment, medical decision making and plan of care as documented. Chart was dictated using [employer] dictation software. Attempts were made to correct any dictation errors however some typographical errors may persist. (Peggy Quevedo) Disposition Is patient prescribed a controlled substance at d/c from ED?: No Time of Disposition: 00:36 <Mariela Singh - Last Filed: 08/01/18 00:52> <Peggy Quevedo - Last Filed: 08/01/18 02:53> Clinical Impression: , Nausea & vomiting, Costochondritis Disposition: HOME SELF-CARE Condition: Good Instructions (If sedation given, give patient instructions): Chest Pain (ED), Costochondritis (ED) Additional Instructions: and advised to take medications as prescribed. Have very close follow-up with her primary care physician and DRIVER LICENSE TECHNICIAN. Return to emergency department if any alarming signs or symptoms occur. Take Tylenol for pain. Prescriptions: Famotidine [Pepcid] 20 mg PO BID #20 tablet Albuterol Inhaler [Ventolin Hfa Inhaler] 1 - 2 puff INHALATION RT-Q6H PRN #1 inhaler PRN Reason: Shortness Of Breath Referrals: Nolan Alexander MD [Primary Care Provider] - 1-2 days
[2018-07-31 23:10] LABS: Basophils % (A) 0 %; Eosinophils # (A) 0.1 k/uL (0-0.7); Eosinophils % (A) 1 %; HCT 30.9 % (34.0-46.0); HGB 10.6 gm/dL (11.4-16.0); Lymphocytes # (A) 1.4 k/uL (1.0-4.8); Lymphocytes % (A) 14 %; MCH 27.8 pg (25.0-35.0); MCHC 34.4 g/dL (31.0-37.0); MCV 80.9 fL (80.0-100.0); Mean Platelet Volume 8.3; Monocytes # (A) 0.6 k/uL (0-1.0); Monocytes % (A) 5 %; Neutrophils % (A) 78 %; Platelet Count 213 k/uL (150-450); RBC 3.83 m/uL (3.80-5.40); RDW 14.1 % (11.5-15.5); WBC 10.2 k/uL (3.8-10.6)
[2018-07-31 23:19] LABS: INR 0.9 (<1.2); Partial Thromboplastin Time 22.5 sec (22.0-30.0); Prothrombin Time 9.5 sec (9.0-12.0)
[2018-07-31 23:28] LABS: ALT 10 U/L (9-52); AST 15 U/L (14-36); African American GFR (CKD) >90 (>60 ml/min/1.73 sqM); Albumin 3.2 g/dL (3.5-5.0); Alkaline Phosphatase 90 U/L (38-126); Anion Gap 9 mmol/L; Blood Urea Nitrogen 6 mg/dL (7-17); Calcium 8.9 mg/dL (8.4-10.2); Carbon Dioxide 21 mmol/L (22-30); Chloride 106 mmol/L (98-107); Glucose 125 mg/dL (74-99); Magnesium 1.4 mg/dL (1.6-2.3); Potassium 3.6 mmol/L (3.5-5.1); Sodium 136 mmol/L (137-145); Total Bilirubin 0.5 mg/dL (0.2-1.3); Total Protein 5.9 g/dL (6.3-8.2)
--- NOTE | 2018-08-01 00:04 | CT ---
EXAM: CT Angiography Chest With Intravenous Contrast CLINICAL HISTORY: Pain TECHNIQUE: Axial computed tomographic angiography images of the chest with intravenous contrast using pulmonary embolism protocol. CTDI is 1.5, 1. 58 mGy and DLP is 208 mGy-cm. This CT exam was performed using one or more of the following dose reduction techniques: automated exposure control, adjustment of the mA and/or kV according to patient size, and/or use of iterative reconstruction technique. MIP reconstructed images were created and reviewed. COMPARISON: CT chest dated 07/31/2018 FINDINGS: Pulmonary arteries: Nondiagnostic study for pulmonary embolus secondary to timing of the IV contrast bolus. Aorta: No acute findings. No thoracic aortic aneurysm. Lungs: Unremarkable. No mass. No consolidation. Pleural space: Unremarkable. No significant effusion. No pneumothorax. Heart: Unremarkable. No cardiomegaly. No significant pericardial effusion. No evidence of RV dysfunction. Bones/joints: No acute fracture. No dislocation. Soft tissues: Unremarkable. Lymph nodes: Unremarkable. No enlarged lymph nodes. IMPRESSION: Nondiagnostic study for pulmonary embolus secondary to timing of the IV contrast bolus. Note that the study was performed twice. Otherwise, no acute findings identified.
[2018-08-01 00:15] VITALS: BP 121/70; PULSE 98; RESP 18
[2018-08-01] MEDS ORDERED: ALBUTEROL NEB (CONC) 2.5 MG/0.5 ML INHALATION SCH (08:00)
[2018-08-01] MEDS ORDERED: ALBUTEROL NEBULIZED 2.5 MG/3 ML INHALATION SCH (09:00)
== END 2018-08-01 01:09 | disposition home or self-care (01) ==
LOC: EC 22:08
DX: O99.89 Other specified diseases and conditions complicating pregnancy, childbirth and the puerperium (principal); M94.0 Chondrocostal junction syndrome [Tietze]; O21.9 Vomiting of pregnancy, unspecified; R10.9 Unspecified abdominal pain; Z87.891 Personal history of nicotine dependence; Z88.0 Allergy status to penicillin; Z91.040 Latex allergy status; Z88.8 Allergy status to other drugs, medicaments and biological substances; Z88.1 Allergy status to other antibiotic agents; Z91.048 Other nonmedicinal substance allergy status; Z3A.31 31 weeks gestation of pregnancy
CPT/HCPCS: 36415; 94640; 93005; 80053; 83735; 84484; 85025; 85610; 85730; 71275; 99285; 96360; 96361; Q9967

== ENCOUNTER 2018-09-06 18:11 | Outpatient (CLI) | payer OTHER ==
[2018-09-06 19:21] VITALS: BP 129/74; PULSE 110; RESP 16; TEMP 98.8
--- NOTE | 2018-09-22 08:26 | P.MSEPDOC ---
Presenting Problems - Arrival Data Date of Arrival on Unit: 09/06/18 Time of Arrival on Unit: 18:11 Mode of Transport: Wheelchair - Complaint OB-Reason for Admission/Chief Complaint: Rule Out SROM Comment: ROM clear/yellow at 1640 small leaks Medical History - Information : 1 Para: 0 Term: 0 : 0 Abortions: Spontaneous or Elective: 0 Number of Living Children: 0 - Gestational Age Gestational Age by DAVID (wks/days): 35 Weeks and 6 Days Review of Systems - Review of Systems Constitutional: No problems Breast: No problems ENT: No problems Cardiovascular: No problems Respiratory: No problems Gastrointestinal: No problems Genitourinary: No problems Musculoskeletal: No problems Neurological: No problems Skin: No problems Vital Signs - Temperature Temperature: 98.8 F Temperature Source: Oral - Pulse Right Brachial Pulse Rate: 110 Pulse Assessment Method: Automatic Cuff - Respirations Respiratory Rate: 16 Oxygen Delivery Method: Room Air - Blood Pressure Right Arm Sitting Blood Pressure: 129/74 Blood Pressure Mean: 92 Blood Pressure Source: Automatic Cuff Medical Screen Scoring (Pre) - Cervical Exam Dilation: 1-3 cm = 1 Membranes: Intact - Uterine Contractions Frequency: < 36 weeks = 6 Duration: N/A Intensity: N/A - Assessment - Baby A Baseline FHR: 140 Heart Rate - NICHD Category: Category I (Normal) = 0 NST: Reactive - Total Score - Baby A Total Score - Baby A: 7 - Total Score - Baby B Total Score - Baby B: 7 - Total Score - Baby C Total Score - Baby C: 7 - Level of Risk - Baby A Level of Risk - Baby A: Medium (6-9) - Level of Risk - Baby B Level of Risk - Baby B: Medium (6-9) - Level of Risk - Baby C Level of Risk - Baby C: Medium (6-9) Medical Screen Scoring (Post) - Cervical Exam Dilation: Exam Deferred Effacement: Exam Deferred Membranes: Intact - Uterine Contractions Frequency: > or = 36 weeks =2 Duration: > 40 seconds = 2 Intensity: N/A - Maternal Vital Signs Maternal Temperature: N/A Maternal Blood Pressure: N/A Signs of Preeclampsia: N/A Maternal Respirations: N/A - Pain Assessment Pain Location and Character: Abdomen Pain Scale Used: Numeric (1 - 10) Pain Intensity: 2 Pain Description: *Acute, Tightness Pain Frequency: Occasional - Maternal Trauma Maternal Trauma: N/A - Assessment - Baby A Heart Rate: 130 Heart Rate - NICHD Category: Category I (Normal) = 0 NST: Reactive Position: N/A - Total Score Total Score - Baby A: 4 Total Score - Baby B: 4 Total Score - Baby C: 4 - Post Treatment Level of Risk Post Treatment Level of Risk - Baby A: Low (0-5) Post Treatment Level of Risk - Baby B: Low (0-5) Post Treatment Level of Risk - Baby C: Low (0-5) Physician Notification (Post) - Physician Notified Physician Notified Date: 09/06/18 Physician Notified Time: 19:48 Spoke With: Anthony New Order Received: Yes (discharge) - Notification Comment Comment: NST reactive, reassuring fhts, movment, amnisure negative, scheduled appt tommorow. Disposition - Disposition OB Disposition: Discharge to home, Written follow up instructions reviewed Discharge Date: 09/06/18 Discharge Time: 19:48 I agree with the RN Medical Screening Exam: Yes Risk & Benefit of care provided described in d/c instruction: Yes Diagnosis: FALSE LABOR AT OR AFTER 37 COMPLETED WEEKS OF GESTATION
== END 2018-09-06 19:48 | disposition home or self-care (01) ==
LOC: FBPOP 18:11
PROVIDERS: ATTEND Obstetrics & Gynecology
DX: O47.03 False labor before 37 completed weeks of gestation, third trimester (principal); Z3A.35 35 weeks gestation of pregnancy
CPT/HCPCS: 59025; 84112; G0463; 99213

== ENCOUNTER 2018-10-03 10:27 | Outpatient (CLI) | payer OTHER ==
[2018-10-03 11:43] LABS: Appearance,Urine Cloudy (Clear); Bacteria,Urine Occasional /hpf; Bilirubin,Urine Negative (Negative); Blood,Urine Negative (Negative); Color,Urine Yellow; Glucose,Urine (UA) Negative (Negative); Ketones,Urine Negative (Negative); Leukocyte Esterase,Urine Large (Negative); Mucus,Urine Rare /hpf; Nitrite,Urine Negative (Negative); Protein,Urine Trace (Negative); RBC,Urine 3 /hpf (0-5); Specific Gravity,Urine 1.015 (1.001-1.035); Squamous Epithelial Cell,Urine 8 /hpf (0-4); Urobilinogen,Urine <2.0 mg/dL (<2.0); WBC,Urine 23 /hpf (0-5)
[2018-10-03 11:52] LABS: Anisocytosis Slight; Basophils % (A) 0 %; Eosinophils # (A) 0.1 k/uL (0-0.7); Eosinophils % (A) 1 %; HGB 11.5 gm/dL (11.4-16.0); Lymphocytes # (A) 2.3 k/uL (1.0-4.8); Lymphocytes % (A) 21 %; MCHC 33.8 g/dL (31.0-37.0); MCV 79.9 fL (80.0-100.0); Mean Platelet Volume 9.5; Monocytes # (A) 0.5 k/uL (0-1.0); Monocytes % (A) 4 %; Neutrophils # (A) 7.9 k/uL (1.3-7.7); Neutrophils % (A) 72 %; Platelet Count 226 k/uL (150-450); RBC 4.25 m/uL (3.80-5.40)
[2018-10-03 12:05] LABS: Uric Acid 6.8 mg/dL (3.7-7.4)
[2018-10-03 12:39] VITALS: BP 133/80; PULSE 100; RESP 18; TEMP 98
--- NOTE | 2018-10-05 15:56 | P.MSEPDOC ---
Presenting Problems - Arrival Data Date of Arrival on Unit: 10/03/18 Time of Arrival on Unit: 10:28 Mode of Transport: Ambulatory - Complaint Comment: itching hands and feet, decreased movement Medical History - Information : 1 Para: 0 Term: 0 : 0 Abortions: Spontaneous or Elective: 0 Number of Living Children: 0 - Gestational Age Gestational Age by DAVID (wks/days): 39 Weeks and 5 Days Review of Systems - Review of Systems Constitutional: No problems Breast: No problems ENT: No problems Cardiovascular: No problems Respiratory: No problems Gastrointestinal: No problems Genitourinary: No problems Musculoskeletal: No problems Neurological: No problems Skin: Itching Vital Signs - Temperature Temperature: 98.0 F Temperature Source: Temporal Artery Scan - Pulse Right Sitting Brachial Pulse Rate: 100 Pulse Assessment Method: Automatic Cuff - Respirations Respiratory Rate: 18 Oxygen Delivery Method: Room Air O2 Sat by Pulse Oximetry: 99 - Blood Pressure Right Arm Sitting Blood Pressure: 133/80 Blood Pressure Mean: 97 Blood Pressure Source: Automatic Cuff Medical Screen Scoring (Pre) - Cervical Exam Dilation: 1-3 cm = 1 Effacement: More than 50% = 2 Membranes: Intact - Uterine Contractions Frequency: > or = 36 weeks =2 Duration: > 40 seconds = 2 Intensity: N/A - Maternal Vital Signs Maternal Temperature: N/A Maternal Blood Pressure: N/A Signs of Preeclampsia: N/A Maternal Respirations: N/A - Maternal Trauma Maternal Trauma: N/A - Assessment - Baby A Baseline FHR: 145 Heart Rate - NICHD Category: Category I (Normal) = 0 NST: Reactive Position: N/A Station: N/A - Total Score - Baby A Total Score - Baby A: 7 - Total Score - Baby B Total Score - Baby B: 7 - Total Score - Baby C Total Score - Baby C: 7 - Level of Risk - Baby A Level of Risk - Baby A: Medium (6-9) - Level of Risk - Baby B Level of Risk - Baby B: Medium (6-9) - Level of Risk - Baby C Level of Risk - Baby C: Medium (6-9) Physician Notification (Pre) - Physician Notified Physician Notified Date: 10/03/18 Physician Notified Time: 12:30 Physician/Practitioner Notifed:: Dr Otoole Spoke With: Dr Otoole New Order Received: Yes - Notification Comment Comment: dc home. follow up in office 1045 tomorrow, plan for induction of labor wednesday Disposition - Disposition OB Disposition: Physician follow up in office, Discharge to home Discharge Date: 10/03/18 Discharge Time: 12:38 I agree with the RN Medical Screening Exam: Yes Risk & Benefit of care provided described in d/c instruction: Yes Diagnosis: DECREASED MOVEMENTS, THIRD TRIMESTER, FETUS 1
== END 2018-10-03 12:39 | disposition home or self-care (01) ==
LOC: FBPOP 10:27
PROVIDERS: ATTEND Obstetrics & Gynecology
DX: O36.8131 Decreased fetal movements, third trimester, fetus 1 (principal); Z3A.39 39 weeks gestation of pregnancy
CPT/HCPCS: 59025; 82239; 84450; 84460; 84550; 85025; 81001; 87086; G0463; 99215

== ENCOUNTER 2018-10-05 05:55 | Inpatient (IN) | payer OTHER ==
[2018-10-05] MEDS ORDERED: OXYTOCIN 10 UNIT/ML 1 ML VIAL IM PRN (06:10)
[2018-10-05] MEDS ORDERED: METHYLERGONOVINE 0.2 MG/ML 1 ML AMP IM PRN (06:10)
[2018-10-05] MEDS ORDERED: PENICILLIN G POTASSIUM 5,000,000 UNIT in DEXTROSE 5% IN WATER 100 ML IVPB STA ×4 (06:10→06:58)
[2018-10-05] MEDS ORDERED: LIDOCAINE 0.5% (PF) 5 MG/ML (50 ML SDV) SQ PRN (06:10)
[2018-10-05] MEDS ORDERED: CARBOPROST TROMETHAMINE 250 MCG/ML 1 ML AMP IM PRN (06:10)
[2018-10-05] MEDS ORDERED: TERBUTALINE 1 MG/ML VIAL SQ PRN (06:10)
[2018-10-05 06:21] VITALS: BMI 33.9
[2018-10-05] MEDS: LACTATED RINGERS 1,000 ML IV SCH ×3 (06:28→20:26)
[2018-10-05] MEDS: OXYTOCIN 30 UNITS/500 ML NS 30 UNIT in SALINE 1 500ML.BAG IV SCH (06:51)
[2018-10-05 07:00] LABS: Basophils % (A) 0 %; Eosinophils # (A) 0.2 k/uL (0-0.7); Eosinophils % (A) 1 %; HCT 34.2 % (34.0-46.0); HGB 11.4 gm/dL (11.4-16.0); Lymphocytes # (A) 2.6 k/uL (1.0-4.8); Lymphocytes % (A) 24 %; MCH 27.3 pg (25.0-35.0); MCHC 33.3 g/dL (31.0-37.0); MCV 82.1 fL (80.0-100.0); Mean Platelet Volume 9.4; Monocytes # (A) 0.7 k/uL (0-1.0); Monocytes % (A) 6 %; Neutrophils # (A) 7.4 k/uL (1.3-7.7); Neutrophils % (A) 67 %; Platelet Count 219 k/uL (150-450); RBC 4.17 m/uL (3.80-5.40); RDW 15.6 % (11.5-15.5)
--- NOTE | 2018-10-05 07:42 | P.HPOB ---
History of Present Illness H&P Date: 10/05/18 This is a 23-year-old white female 1 para 0 EDC 10/05/2018 at 40 weeks gestation. Patient presents for induction for decreased movement at term. She's had decreased movement over the past several weeks of her , biophysical profile yesterday 8 out of 8 with nonreactive NST. Cervix is reasonably favorable and decision is made for induction at this time. She is having mild irregular contractions, she denies fluid leakage or vaginal bleeding. Past medical history is significant for anxiety and depression, as well as well as asthma.. Patient has spina bifida occulta as well. Past surgical history significant for tonsillectomy and eustachian tubes placed in the ears. Cholecystectomy second trimester . Current medications Ventolin inhaler 90 MCG's per aerosol, 1 puff every 6 hours as needed. vitamin daily. ALLERGIES include amoxicillin, "I get a reaction to that because I taken it so much" Macrobid, Medrol Dosepak to which reports palpitations, and seasonal ALLERGIES. Patient states she has no reaction to penicillin. Family history significant for pulmonary embolism, congestive heart failure and hypertension. Social history patient is single, her boyfriend is involved in the . She is seeing a counselor for her history of anxiety and depression. She is a former tobacco smoker but denies tobacco with . She denies alcohol or drug use. history is significant for blood type A+, rubella status immune. VDRL testing, urine culture, hepatitis B surface antigen, HIV testing, gonorrhea and chlamydia cultures all negative. One-hour Glucola 133. Positive group B strep cultures. On exam she is 4 foot 11 inches, 168 pounds, blood pressure 136/81, pulse 83. Chest is clear in all purdy. Extremities reveal no edema. heart rate in the 140s with nonreactive NST. Cervix is 2-3 cm dilated, soft, 60% effaced, -2 station, vertex presentation. Artificial amniorrhexis reveals clear fluid. I nternal scalp lead is applied. Impression: 40 week intrauterine , decreased movement, positive group B strep cultures. All signs reassuring at this time. Plan: Oxytocin per hospital protocol. Penicillin G per hospital protocol. Close maternal and surveillance. Analgesic options have been reviewed with the patient. Anticipate normal spontaneous vaginal delivery. Review of Systems Patient reports intense Palm and sole itching. Constitutional: Reports as per HPI Past Medical History Past Medical History: Asthma Additional Past Medical History / Comment(s): Low blood sugar History of Any Multi-Drug Resistant Organisms: MRSA Date of last positivie culture/infection: 05/2017 MDRO Source:: Left lower leg-05/2017 Past Surgical History: Cholecystectomy, Tonsillectomy Past Anesthesia/Blood Transfusion Reactions: No Reported Reaction Past Psychological History: Anxiety, Depression Smoking Status: Never smoker Past Alcohol Use History: None Reported Past Drug Use History: None Reported - Past Family History Mother Additional Family Medical History / Comment(s): vero Medications and Allergies Home Medications Medication Instructions Recorded Confirmed Type Irx-Qqil-Dcqud Acid 1 cap PO HS 05/10/18 10/05/18 History [-U Capsule (formulary)] Albuterol Inhaler [Ventolin Hfa 1 - 2 puff INHALATION RT-Q6H PRN 08/01/18 10/05/18 Rx Inhaler] #1 inhaler Allergies Allergy/AdvReac Type Severity Reaction Status Date / Time amoxicillin Allergy Rash/Hives Verified 10/05/18 06:09 latex Allergy Rash/Hives Verified 10/05/18 06:09 methylprednisolone Allergy Rapid Verified 10/05/18 06:09 [From Medrol] Heart Rate monosodium glutamate [MSG] Allergy Nausea & Verified 10/05/18 06:09 Vomiting & Diarrhea nitrofurantoin AdvReac Vomiting Verified 10/05/18 06:09 [From Macrobid] tape AdvReac Itching Uncoded 10/05/18 06:09 Exam Vital Signs Temp Pulse Resp BP Pulse Ox 10/05/18 06:15 96.7 F L 83 16 136/81 98 Intake and Output 10/04/18 10/05/18 10/05/18 22:59 06:59 14:59 Other: Weight 76.204 kg See dictation under HPI please Results Result Diagrams: 10/05/18 06:45 Abnormal Lab Results - Last 24 Hours (Table) 10/05/18 Range/Units 06:45 WBC 11.0 H (3.8-10.6) k/uL RDW 15.6 H (11.5-15.5) % Assessment and Plan Assessment: 40 week intrauterine , decreased movement throughout the third trimester, positive group B strep cultures. Fasting bile acids pending for history of intense Palm and sole itching. Plan: Penicillin G per hospital protocol, patient denies ALLERGY. Oxytocin per hospital protocol. Continued close maternal and surveillance. Anticipate normal spontaneous vaginal delivery. Time with Patient: Greater than 30
[2018-10-05] MEDS ORDERED: PENICILLIN G POTASSIUM 2,500,000 UNIT in DEXTROSE 5% IN WATER 100 ML IVPB SCH ×4 (10:12→11:00)
[2018-10-05] MEDS ORDERED: BUTORPHANOL 1 MG/ML 1 ML VIAL IV PRN (12:10)
[2018-10-05] MEDS ORDERED: ONDANSETRON 4 MG/2 ML VIAL IVP PRN ×2 (13:32→16:57)
[2018-10-05] MEDS ORDERED: diphenhydrAMINE 50 MG/ML 1 ML VIAL ONE (16:07)
[2018-10-05] MEDS ORDERED: MORPHINE SULFATE (PF) 0.3 MG/0.3 ML SYR ONE (16:07)
[2018-10-05] MEDS ORDERED: LACTATED RINGERS 1,000 ML BAG IV ONE (16:07)
[2018-10-05] MEDS ORDERED: KETOROLAC 30 MG/ML 1 ML VIAL ONE (16:07)
[2018-10-05] MEDS ORDERED: ONDANSETRON 4 MG/2 ML VIAL ONE (16:07)
[2018-10-05] MEDS ORDERED: DEXAMETHASONE SOD PHOS (MDV) 100 MG/10 ML VIAL ONE (16:07)
[2018-10-05] MEDS ORDERED: OXYTOCIN 10 UNIT/ML 1 ML VIAL ONE (16:07)
[2018-10-05] MEDS ORDERED: ceFAZolin 1,000 MG VIAL ONE (16:07)
[2018-10-05] MEDS ORDERED: diphenhydrAMINE 50 MG/ML 1 ML VIAL IVP PRN ×2 (16:57)
[2018-10-05] MEDS ORDERED: diphenhydrAMINE 25 MG CAP PO PRN (16:57)
[2018-10-05] MEDS ORDERED: METOCLOPRAMIDE 5 MG/ML 2 ML VIAL IVP PRN (16:57)
[2018-10-05] MEDS ORDERED: diphenhydrAMINE 50 MG CAP PO PRN (16:57)
[2018-10-05] MEDS ORDERED: SIMETHICONE 80 MG CHEWABLE PO PRN (16:57)
[2018-10-05] MEDS ORDERED: ZOLPIDEM 5 MG TAB PO PRN (16:57)
[2018-10-05] MEDS ORDERED: KETOROLAC 30 MG/ML 1 ML VIAL IVP PRN (16:57)
[2018-10-05] MEDS ORDERED: NALOXONE 0.4 MG/ML 1 ML VIAL IV PRN ×2 (16:57→18:28)
--- NOTE | 2018-10-05 16:57 | P.OP ---
Date of Procedure: 10/05/18 Preoperative Diagnosis: 40 weeks gestation, arrest of dilatation and descent, positive group B strep cultures. Postoperative Diagnosis: Same, 8 lbs. 7 oz. female infant, 3820 g, left occiput transverse position. Procedure(s) Performed: Primary low transverse section Anesthesia: spinal Surgeon: Livier Otoole Rippler #1: Laura Aviles Estimated Blood Loss (ml): 300 IV fluids (ml): 700 Urine output (ml): 100 Pathology: other (Placenta) Condition: stable Disposition: PACU Operative Findings: Liveborn female , left occiput transverse position, Apgars 9 and 9 at one and 5 minutes. Description of Procedure: Patient is brought to the operating suite where a spinal with Duramorph is placed without difficulty per the anesthesia staff. She is placed in the dorsal supine position with left lateral uterine displacement. The abdomen is prepped and draped in usual sterile fashion. The analgesia is checked and noted to be adequate. The appropriate timeout is performed to assure proper patient and procedural identification. Lozano catheter is placed after the spinal, latex free catheter utilized. A low transverse skin incision is made in this is carried down through the subcutaneous tissue to the fascia. Fascia is incised, extended with curved Pelaez scissors. Peritoneum is next identified and incised, there is no bowel or bladder involvement. The bladder is Well from the operative field to avoid any injury. Bladder blade is placed over the dome of the bladder. A low transverse uterine incision is made in this is carried into the endometrial cavity. It is extended with blunt dissection. The infant's head is delivered in the left occiput transverse position. The oropharynx, nasopharynx, and external nares were all bulb suctioned. Patient is officially delivered of a liveborn female infant at 1623 hours. Umbilical cord is doubly clamped and ligated, she is handed to waiting nurses for evaluation where scores of 9 and 9 at one and 5 minutes respectively are given. Placenta is delivered manually, it is inspected and noted to be intact with trivascular cord at 1624 hours. It is sent to pathology for evaluation for decreased movement throughout the third trimester, possible cholestasis of , fasting uric acid pending. The uterus is then externalized and massaged. Oxytocin is given. Please note that 2 g of Ancef are given in the operating room prior to incision, penicillin G had been received through the day for positive group B strep cultures. 2 doses received. The uterus is swept clean with a sterile sponge to avoid any retained products of conception. The edges are grasped with Fine clamps. The uterus is closed in a two-step fashion, first layer running locking, second layer imbricated. Excellent reapproximation is noted. Bilateral tubes and ovaries are inspected and noted to be in the normal range. No uterine defects or anomalies are appreciated. Abdomen is now suctioned with suction on guard. Uterus is placed back into the abdominal cavity. Bilateral gutters are inspected and cleaned. Peritoneum is allowed to close by secondary intention. Lozano catheter is noted to be draining clear urine. Fascia is closed in a running stitch of 0 Vicryl with over ligation in the midline. Subcutaneous tissue is irrigated, noted to be clean and dry. It is reapproximated with 3-0 Vicryl in a running stitch. 4-0 undyed Monocryl is used for final skin closure subcuticularly. Excellent skin reapproximation is noted. Steri-Strips and Mastisol are applied to the wound along with a dressing. Total estimated blood loss 300 mL's. Fluid replacement 700 mL's. Urine output 100 mL clear urine. Patient is brought back to recovery room in very good condition with stable vital signs including blood pressure 124/60, pulse 85, 97% O2 saturation.
[2018-10-05] MEDS ORDERED: MORPHINE SULFATE 4 MG/ML SYRINGE IVP PRN (18:28)
--- NOTE | 2018-10-06 07:32 | P.PN ---
Subjective Progress Note Date: 10/06/18 Principal diagnosis: Postoperative day #1 Slept well. Positive flatus. Pain well controlled. No complaints. Objective - Vital Signs Vital signs: Vital Signs Temp 98.1 F 10/06/18 04:00 Pulse 104 H 10/06/18 04:00 Resp 16 10/06/18 04:00 BP 117/78 10/06/18 04:00 Pulse Ox 98 10/06/18 05:00 Intake & Output 10/05/18 10/06/18 10/06/18 18:59 06:59 18:59 Intake Total 1000 Output Total 300 500 Balance 700 -500 Intake: IV 1000 Output: Urine 500 Estimated Blood Loss 300 Other: Voiding Method Indwelling Catheter Indwelling Catheter # Emeses 2 - Constitutional General appearance: Present: obese - EENT Eyes: Present: PERRLA ENT: Present: hearing grossly normal - Neck Neck: Present: normal ROM Thyroid: bilateral: normal size - Respiratory Respiratory: bilateral: CTA - Cardiovascular Rhythm: regular - Gastrointestinal Gastrointestinal Comment(s): Incision clean and dry, Steri-Strips applied. Fundus firm, midline, symmetric, 18 week size. General gastrointestinal: Present: normal bowel sounds - Integumentary Integumentary: Present: normal - Neurologic Neurologic: Present: CNII-XII intact - Musculoskeletal Musculoskeletal: Present: gait normal, strength equal bilaterally - Psychiatric Psychiatric: Present: A&O x's 3, appropriate affect, intact judgment & insight - Labs CBC & Chem 7: 10/05/18 06:45 Assessment and Plan Assessment: Postoperative day #1, doing well. Plan: Advance diet and activity. DC IV. Continue postoperative care. Likely discharge home tomorrow. Time with Patient: Less than 30
--- NOTE | 2018-10-06 07:52 | P.PN ---
Progress Note - Text Progress Note Date: 10/06/18 patient was seen at 07:33 AM : Postoperative day 1 status post section under spinal anesthesia, and intrathecal morphine given for postoperative analgesia, patient doing well, there is no anesthesia related complications, Patient had no headache, vital signs stable , Assessment and plan= postop day 1 status post , doing well there is no anesthesia related complication.
[2018-10-06 07:54] LABS: Anisocytosis Slight; Basophils % (A) 0 %; Eosinophils # (A) 0.1 k/uL (0-0.7); Eosinophils % (A) 0 %; HCT 25.3 % (34.0-46.0); Lymphocytes # (A) 2.3 k/uL (1.0-4.8); Lymphocytes % (A) 12 %; MCH 27.9 pg (25.0-35.0); MCHC 34.3 g/dL (31.0-37.0); MCV 81.5 fL (80.0-100.0); Mean Platelet Volume 9.7; Monocytes % (A) 5 %; Neutrophils # (A) 15.6 k/uL (1.3-7.7); Neutrophils % (A) 82 %; Platelet Count 220 k/uL (150-450); RBC 3.11 m/uL (3.80-5.40); RDW 16.4 % (11.5-15.5); WBC 19.1 k/uL (3.8-10.6)
[2018-10-06 08:12] LABS: HGB 8.7 gm/dL (11.4-16.0)
[2018-10-06] MEDS: SENNOSIDES-DOCUSATE SODIUM 1 EACH TAB PO SCH ×3 (08:40→20:35)
[2018-10-06] MEDS: ACETAMINOPHEN TAB 325 MG TAB PO PRN ×2 (17:13→23:44)
[2018-10-06] MEDS: IBUPROFEN 600 MG TAB PO PRN (20:35)
[2018-10-07] MEDS: HYDROcodone/APAP 5-325MG 1 EACH TAB PO PRN ×2 (03:12→23:21)
--- NOTE | 2018-10-07 08:11 | P.PN ---
Subjective Progress Note Date: 10/07/18 Principal diagnosis: Postoperative day number two Objective - Vital Signs Vital signs: Vital Signs Temp 98.8 F 10/06/18 23:52 Pulse 85 10/06/18 23:52 Resp 14 10/06/18 23:52 BP 125/71 10/06/18 23:52 Pulse Ox 97 10/06/18 23:52 Intake & Output 10/06/18 10/07/18 10/07/18 18:59 06:59 18:59 Intake Total 500 Output Total 650 Balance -150 Intake: Intake, IV Titration 500 Amount Lactated Ringers 1,000 ml 500 @ 125 mls/hr IV .Q8H ROLLY Rx#:[id number] Output: Urine 650 - Constitutional General appearance: Present: obese - EENT Eyes: Present: PERRLA ENT: Present: hearing grossly normal - Neck Neck: Present: normal ROM Thyroid: bilateral: normal size - Respiratory Respiratory: bilateral: CTA - Cardiovascular Rhythm: regular - Gastrointestinal General gastrointestinal: Present: normal bowel sounds - Genitourinary Genitourinary Comment(s): Incision clean and dry, intact, Steri-Strips applied. Fundus firm, nontender, midline, symmetric, 18 week size. - Integumentary Integumentary: Present: normal - Neurologic Neurologic: Present: CNII-XII intact - Musculoskeletal Musculoskeletal: Present: gait normal, strength equal bilaterally - Psychiatric Psychiatric: Present: A&O x's 3, appropriate affect, intact judgment & insight - Labs CBC & Chem 7: 10/06/18 07:15 Labs: Abnormal Lab Results - Last 24 Hours (Table) 10/06/18 Range/Units 07:15 WBC 19.1 H (3.8-10.6) k/uL RBC 3.11 L (3.80-5.40) m/uL Hgb 8.7 L D (11.4-16.0) gm/dL Hct 25.3 L (34.0-46.0) % RDW 16.4 H (11.5-15.5) % Neutrophils # 15.6 H (1.3-7.7) k/uL Assessment and Plan Assessment: Postoperative day #2. Patient doing well. Discussed with her option for SSRI, declining at this time. Plan: Likely discharge home tomorrow. Baby in nursery for therapy for jaundice. Patient states she has a counselor that she sees weekly and will continue seeing her immediately upon discharge. Option for SSRI discussed, patient on Lexapro years ago with good results. She is declining at this time. Continue postoperative care today. Time with Patient: Less than 30
[2018-10-07] MEDS: IBUPROFEN 600 MG TAB PO PRN ×2 (11:13→17:28)
[2018-10-07] MEDS: SENNOSIDES-DOCUSATE SODIUM 1 EACH TAB PO SCH ×2 (17:31→20:53)
[2018-10-07] MEDS: LACTATED RINGERS 1,000 ML IV SCH ×2 (21:04→21:05)
[2018-10-07] MEDS: OXYTOCIN 30 UNITS/500 ML NS 30 UNIT in SALINE 1 500ML.BAG IV SCH (21:05)
[2018-10-08] MEDS: IBUPROFEN 600 MG TAB PO PRN (05:13)
--- NOTE | 2018-10-08 09:30 | P.DS ---
Providers Date of admission: 10/05/18 05:55 Expected date of discharge: 10/08/18 Attending physician: Livier Otoole Primary care physician: Stated None - Discharge Diagnosis(es) (1) Term Current Visit: Yes Status: Acute (2) Decreased movement Current Visit: Yes Status: Acute (3) Arrest of descent, delivered, current hospitalization Current Visit: Yes Status: Acute (4) Arrest of dilation, delivered, current hospitalization Current Visit: Yes Status: Acute (5) S/P section Current Visit: Yes Status: Acute Hospital Course: This is a 23-year-old 1 para 0 at 40-0/7 weeks that presented to labor and delivery on 10/05 for induction of labor secondary to increased movement at term. Patient noted decreased movement over the past several weeks of the biophysical profile was 8 out of 8 with a nonreactive NST. Cervix was recently favorable at the time of admission and patient wished induction. Patient was admitted to labor and delivery and started on Pitocin for induction of labor. Patient was known to be GBS positive therefore penicillin G was started per protocol. Once regular contractions were noted amniotomy was performed. Patient made minimal change throughout the day and was counseled on the need for primary low transverse section secondary to arrest of descent and dilation. Patient stated understanding and was taken back to the operating suite for primary . Spinal was placed by the anesthesia department and was performed without difficulty. A viable female infant was delivered at 1623 with a weight of 8 lbs. 7 oz. with Apgars of 99 at one and 5 minutes respectively. Patient's postoperative course has been essentially uneventful. On this postop day #3 she is ambulating and voiding without difficulty. She is tolerating a regular diet without nausea or vomiting. She states her pain is well-controlled with oral pain medication. She does wish discharge home on this postop day #3. Patient Condition at Discharge: Good Plan - Discharge Summary New Discharge Prescriptions: No Action Ahm-Pojz-Uexgv Acid [-U Capsule (formulary)] 1 cap PO HS Albuterol Inhaler [Ventolin Hfa Inhaler] 1 - 2 puff INHALATION RT-Q6H PRN #1 inhaler PRN Reason: Shortness Of Breath Discharge Medication List Ruo-Pqen-Qsgxj Acid [-U Capsule (formulary)] 1 cap PO HS 05/10/18 [History] Albuterol Inhaler [Ventolin Hfa Inhaler] 1 - 2 puff INHALATION RT-Q6H PRN #1 inhaler 08/01/18 [Rx] Follow up Appointment(s)/Referral(s): Livier Otoole MD [STAFF PHYSICIAN] - 2 Weeks Patient Instructions/Handouts: (DC), (GEN) Discharge Disposition: HOME SELF-CARE
[2018-10-08] MEDS: HYDROcodone/APAP 5-325MG 1 EACH TAB PO PRN (09:44)
[2018-10-08] MEDS: SENNOSIDES-DOCUSATE SODIUM 1 EACH TAB PO SCH (09:46)
[2018-10-08 10:01] VITALS: BP 141/77; PULSE 90; RESP 18; TEMP 98.4
== END 2018-10-08 12:59 | disposition home or self-care (01) | DRG 788 ==
LOC: 4FBP 05:55 → EDSTATUS 07:15
PROVIDERS: ADMIT Obstetrics & Gynecology; ATTEND Obstetrics & Gynecology
PROC: 10907ZC Drainage of Amniotic Fluid, Therapeutic from Products of Conception, Via Natural or Artificial Opening (ICD-10-PCS; 2018-10-05)
PROC: 3E033VJ Introduction of Other Hormone into Peripheral Vein, Percutaneous Approach (ICD-10-PCS; 2018-10-05)
PROC: 10D00Z1 Extraction of Products of Conception, Low, Open Approach (ICD-10-PCS; principal; 2018-10-05 15:43)
DX: O62.0 Primary inadequate contractions (principal); O36.8130 Decreased fetal movements, third trimester, not applicable or unspecified; F32.9 Major depressive disorder, single episode, unspecified; F41.9 Anxiety disorder, unspecified; J45.909 Unspecified asthma, uncomplicated; O62.1 Secondary uterine inertia; O76 Abnormality in fetal heart rate and rhythm complicating labor and delivery; O99.344 Other mental disorders complicating childbirth; O99.52 Diseases of the respiratory system complicating childbirth; Q76.0 Spina bifida occulta; Z37.0 Single live birth; Z3A.40 40 weeks gestation of pregnancy; Z82.49 Family history of ischemic heart disease and other diseases of the circulatory system; Z87.891 Personal history of nicotine dependence; Z86.14 Personal history of Methicillin resistant Staphylococcus aureus infection; Z88.0 Allergy status to penicillin; Z88.8 Allergy status to other drugs, medicaments and biological substances; Z88.1 Allergy status to other antibiotic agents; Z91.040 Latex allergy status; O99.820 Streptococcus B carrier state complicating pregnancy
CPT/HCPCS: 85025; 86850; 86900; 86901; 88307

== ENCOUNTER 2019-10-19 06:55 | Day surgery (SDC) | payer OTHER ==
[2019-10-17 10:35] VITALS: BMI 32.3
[2019-10-19 07:18] VITALS: TEMP 97.5
[2019-10-19] MEDS ORDERED: ONDANSETRON 4 MG/2 ML VIAL IVP ONE (07:33)
[2019-10-19 07:35] LABS: Glucose,Whole Blood 122 mg/dL (75-99)
[2019-10-19] MEDS ORDERED: ONDANSETRON 4 MG/2 ML VIAL ONE (07:36)
[2019-10-19] MEDS: LACTATED RINGERS 1,000 ML IV SCH ×2 (07:37→07:44)
[2019-10-19] MEDS ORDERED: LIDOCAINE 1% INJ 10MG/ML (20 ML MDV) ONE (07:44)
[2019-10-19] MEDS ORDERED: PROPOFOL 10 MG/ML 20 ML VIAL IV ONE (07:44)
--- NOTE | 2019-10-19 07:56 | P.GSHP ---
History of Present Illness H&P Date: 10/19/19 Chief Complaint: Diarrhea This a 24 female presents today for colonoscopy. She's had issues with diarrhea. Past Medical History Past Medical History: Asthma Additional Past Medical History / Comment(s): Low blood sugar, MIGRAINE HEADACHE, OCCIPTAL NEURALGIA ,ABDOMINAL PAIN, DIARRHEA AND VOMITING History of Any Multi-Drug Resistant Organisms: MRSA Date of last positivie culture/infection: 05/2017 MDRO Source:: Left lower leg-05/2017 Past Surgical History: Cholecystectomy, Tonsillectomy Past Anesthesia/Blood Transfusion Reactions: No Reported Reaction, Motion Sickness, Postoperative Nausea & Vomiting (PONV) Smoking Status: Never smoker - Past Family History Mother Family Medical History: Cancer Additional Family Medical History / Comment(s): LUNG CANCER Sister(s) Family Medical History: Cancer Medications and Allergies Home Medications Medication Instructions Recorded Confirmed Type Albuterol Inhaler (u) [Ventolin 1 - 2 puff INHALATION RT-Q6H PRN 08/01/18 10/19/19 Rx Hfa Inhaler (u)] #1 inhaler Acetaminophen Tab [Tylenol] 650 mg PO Q4H PRN 10/17/19 10/19/19 History Beclomethasone Dip 80 Mcg/Puff 1 puff INHALATION DAILY 10/17/19 10/19/19 History [Qvar 80 mcg] Fluticasone Nasal [place] [Flonase 2 spr EA NOSTRIL DAILY 10/17/19 10/19/19 History Nasal [place]] Sulfamethoxazole/Trimethoprim 1 each PO BID 10/17/19 10/19/19 History [Bactrim DS 800-160 mg] Allergies Allergy/AdvReac Type Severity Reaction Status Date / Time amoxicillin Allergy Rash/Hives Verified 10/19/19 07:29 latex Allergy Rash/Hives,SHORTNESS Verified 10/19/19 07:29 OF BREATH lonnie Allergy THROAT Verified 10/19/19 07:29 CLOSED" methylprednisolone Allergy Rapid Verified 10/19/19 07:29 [From Medrol] Heart Rate monosodium glutamate [MSG] Allergy Nausea & Verified 10/19/19 07:29 Vomiting & Diarrhea Penicillins Allergy PER Verified 10/19/19 07:29 ALLERGY TEST shellfish derived [Shrimp] Allergy PER Verified 10/19/19 07:29 ALLERGY TESTING nitrofurantoin AdvReac Vomiting Verified 10/19/19 07:29 [From Macrobid] SOY,PINAPPLE Allergy PER Uncoded 10/19/19 07:29 ALLERGY TESTING tape AdvReac Itching Uncoded 10/19/19 07:29 Surgical - Exam Vital Signs Temp Pulse Resp BP Pulse Ox 97.5 F L 92 16 142/89 97 10/19/19 07:14 10/19/19 07:14 10/19/19 07:14 10/19/19 07:14 10/19/19 07:14 - General well developed, well nourished, no distress - Eyes PERRL - ENT normal pinna - Neck no masses - Respiratory normal expansion - Cardiovascular Rhythm: regular - Abdomen Abdomen: soft, non tender Results - Labs Abnormal Lab Results - Last 24 Hours (Table) 10/19/19 Range/Units 07:33 POC Glucose (mg/dL) 122 H (75-99) mg/dL Assessment and Plan Assessment: Diarrhea. We'll perform colonoscopy.
--- NOTE | 2019-10-19 08:12 | P.OP ---
Date of Procedure: 10/19/19 Preoperative Diagnosis: Diarrhea Postoperative Diagnosis: Colonoscopy Procedure(s) Performed: Colonoscopy Anesthesia: MAC Surgeon: Jeet Toussaint Pathology: other (Rectal biopsy) Condition: stable Disposition: PACU Description of Procedure: The patient's placed on the endoscopy table in the lateral position. She received IV sedation. Digital rectal exam is performed which revealed no rebound. Flexible scope was then placed patient anus passed rotator entire colon. The ileocecal valve sutures. The cecum, ascending and transverse colon appeared normal. The descending and sigmoid colon appeared normal. Scope was brought back the rectum this appeared normal. Due to the patient's symptoms of diarrhea random rectal biopsies performed pathology: Forcep.. The scope was then withdrawn from patient.
[2019-10-19 08:20] VITALS: RESP 18
[2019-10-19 08:35] VITALS: BP 128/88; PULSE 85
== END 2019-10-19 08:48 | disposition home or self-care (01) ==
LOC: ORWHC2ENDO 06:55
PROVIDERS: ATTEND Surgery
DX: K62.1 Rectal polyp (principal); G43.909 Migraine, unspecified, not intractable, without status migrainosus; Z91.040 Latex allergy status; Z91.048 Other nonmedicinal substance allergy status; Z91.018 Allergy to other foods; Z88.0 Allergy status to penicillin; Z88.1 Allergy status to other antibiotic agents; Z88.8 Allergy status to other drugs, medicaments and biological substances; Z79.51 Long term (current) use of inhaled steroids; Z79.899 Other long term (current) drug therapy; Z86.14 Personal history of Methicillin resistant Staphylococcus aureus infection; Z90.49 Acquired absence of other specified parts of digestive tract; Z90.89 Acquired absence of other organs; Z80.1 Family history of malignant neoplasm of trachea, bronchus and lung; Z80.9 Family history of malignant neoplasm, unspecified
CPT/HCPCS: 81025; 88305; 45380; J2405; J2001; J2704

== ENCOUNTER 2020-05-20 22:41 | Emergency (ER) | payer OTHER ==
[2020-05-20 22:47] VITALS: RESP 18
--- NOTE | 2020-05-20 23:34 | XR ---
EXAMINATION TYPE: XR chest 2V DATE OF EXAM: 05/20/2020 COMPARISON: NONE HISTORY: Cough TECHNIQUE: 2 views FINDINGS: Heart and mediastinum are normal. Lungs are clear. Diaphragm is normal. Bony thorax appears normal. IMPRESSION: Normal chest.
[2020-05-21] MEDS ORDERED: ALBUTEROL HFA INHALER INHALATION STA (00:34)
[2020-05-21] MEDS ORDERED: ACETAMINOPHEN TAB 500 MG TAB PO STA (00:34)
[2020-05-21] MEDS ORDERED: dexAMETHasone 2 MG TAB PO STA (00:34)
[2020-05-21] MEDS ORDERED: IBUPROFEN 800 MG TAB PO STA (00:34)
--- NOTE | 2020-05-21 00:34 | ED ---
Recheck HPI - General Chief Complaint: Shortness of Breath Stated Complaint: COVID+, SOB, chest pain Time Seen by Provider: 05/21/20 00:32 Source: patient, RN notes reviewed, old records reviewed Mode of arrival: ambulatory Limitations: no limitations - History of Present Illness Initial Comments: This is a 25-year-old female DF for evaluation patient is positive coronavirus known positive test. Patient states she's had increasing shortness of breath admits increased anxiety. Patient has no other recent complaints. No nausea vomiting or diarrhea. This feels like her shortness of breath getting worse she does suffer from asthma MD Complaint: other (Recheck of coronavirus symptoms) -: days(s) Returns Today for: persistent/worsening pain related to initial visit, other (Shortness of breath) Symptoms Since Prior Visit: worsening pain Context: other (none) Associated Symptoms: fever, chills Treatments Prior to Arrival: other (none) - Related Data Home Medications Medication Instructions Recorded Confirmed Acetaminophen Tab [Tylenol] 650 mg PO Q4H PRN 10/17/19 10/19/19 Beclomethasone Dip 80 Mcg/Puff 1 puff INHALATION DAILY 10/17/19 10/19/19 [Qvar 80 mcg] Fluticasone Nasal [place] [Flonase 2 spr EA NOSTRIL DAILY 10/17/19 10/19/19 Nasal [place]] Sulfamethoxazole/Trimethoprim 1 each PO BID 10/17/19 10/19/19 [Bactrim DS 800-160 mg] Previous Rx's Medication Instructions Recorded Albuterol Inhaler (Mhu) [Ventolin 1 - 2 puff INHALATION RT-Q6H PRN 08/01/18 Hfa Inhaler (Mhu)] #1 inhaler Allergies Allergy/AdvReac Type Severity Reaction Status Date / Time amoxicillin Allergy Rash/Hives Verified 05/20/20 22:46 latex Allergy Rash/Hives,SHORTNESS Verified 05/20/20 22:46 OF BREATH lonnie Allergy THROAT Verified 05/20/20 22:46 CLOSED" methylprednisolone Allergy Rapid Verified 05/20/20 22:46 [From Medrol] Heart Rate monosodium glutamate [MSG] Allergy Nausea & Verified 05/20/20 22:46 Vomiting & Diarrhea Penicillins Allergy PER Verified 05/20/20 22:46 ALLERGY TEST shellfish derived [Shrimp] Allergy PER Verified 05/20/20 22:46 ALLERGY TESTING nitrofurantoin AdvReac Vomiting Verified 05/20/20 22:46 [From Macrobid] SOY,PINAPPLE Allergy PER Uncoded 05/20/20 22:46 ALLERGY TESTING tape AdvReac Itching Uncoded 05/20/20 22:46 Review of Systems ROS Statement: Those systems with pertinent positive or pertinent negative responses have been documented in the HPI. ROS Other: All systems not noted in ROS Statement are negative. Past Medical History Past Medical History: Asthma Additional Past Medical History / Comment(s): Low blood sugar, MIGRAINE HEADACHE, OCCIPTAL NEURALGIA ,ABDOMINAL PAIN, DIARRHEA AND VOMITING, graves, History of Any Multi-Drug Resistant Organisms: MRSA Date of last positivie culture/infection: 05/2017 MDRO Source:: Left lower leg-05/2017 Past Surgical History: Cholecystectomy, Tonsillectomy Past Anesthesia/Blood Transfusion Reactions: No Reported Reaction, Motion Sickness, Postoperative Nausea & Vomiting (PONV) Past Psychological History: Anxiety, Depression Smoking Status: Never smoker Past Alcohol Use History: None Reported Past Drug Use History: None Reported - Past Family History Mother Family Medical History: Cancer Additional Family Medical History / Comment(s): LUNG CANCER Sister(s) Family Medical History: Cancer General Exam Limitations: no limitations General appearance: alert, in no apparent distress Head exam: Present: atraumatic, normocephalic, normal inspection Eye exam: Present: normal appearance, PERRL, EOMI. Absent: scleral icterus, conjunctival injection, periorbital swelling ENT exam: Present: normal exam, mucous membranes moist Neck exam: Present: normal inspection. Absent: tenderness, meningismus, lymphadenopathy Respiratory exam: Present: normal lung sounds bilaterally. Absent: respiratory distress, wheezes, rales, rhonchi, stridor Cardiovascular Exam: Present: regular rate, normal rhythm, normal heart sounds. Absent: systolic murmur, diastolic murmur, rubs, gallop, clicks GI/Abdominal exam: Present: soft, normal bowel sounds. Absent: distended, tenderness, guarding, rebound, rigid Extremities exam: Present: normal inspection, full ROM, normal capillary refill. Absent: tenderness, pedal edema, joint swelling, calf tenderness Back exam: Present: normal inspection Neurological exam: Present: alert, oriented X3, CN II-XII intact Psychiatric exam: Present: normal affect, normal mood Skin exam: Present: warm, dry, intact, normal color. Absent: rash Course Vital Signs 05/20/20 05/21/20 22:43 01:04 Temperature 97.9 F 98.9 F Pulse Rate 106 H 91 Respiratory 18 18 Rate Blood Pressure 140/92 122/80 O2 Sat by Pulse 99 98 Oximetry - Reevaluation(s) Reevaluation #1: Medical record is reviewed Patient symptoms are significantly improved here in the emergency department Patient family informed of results, questions answered Medical Decision Making - Medical Decision Making 25 female DF for evaluation. Patient is positive for coronavirus. Patient can be discharged home patient states she does have known positive coronavirus test - Radiology Data Radiology results: report reviewed (Chest x-rays negative for acute disease), im age reviewed Disposition Clinical Impression: Coronavirus infection Disposition: HOME SELF-CARE Condition: Good Instructions (If sedation given, give patient instructions): Coronavirus Disease 2019 (COVID-19) Is patient prescribed a controlled substance at d/c from ED?: No Referrals: Nolan Alexander MD [Primary Care Provider] - 1-2 days
[2020-05-21 01:06] VITALS: BP 122/80; PULSE 91; TEMP 98.9
== END 2020-05-21 01:20 | disposition home or self-care (01) ==
LOC: EC 22:41
DX: U07.1 COVID-19 (principal); J45.909 Unspecified asthma, uncomplicated; G43.909 Migraine, unspecified, not intractable, without status migrainosus; F41.9 Anxiety disorder, unspecified; F32.9 Major depressive disorder, single episode, unspecified; Z79.51 Long term (current) use of inhaled steroids
CPT/HCPCS: 94640; 71046; 99285; J8540

== ENCOUNTER 2020-12-29 08:49 | Emergency (ER) | payer OTHER ==
[2020-12-29] MEDS ORDERED: SODIUM CHLORIDE 0.9% 2,000 ML IV STA (10:12)
[2020-12-29] MEDS ORDERED: MORPHINE SULFATE 4 MG/ML SYRINGE IV STA (10:12)
[2020-12-29] MEDS ORDERED: KETOROLAC 15 MG/ML 1 ML VIAL IVP STA (10:12)
[2020-12-29] MEDS ORDERED: ONDANSETRON 4 MG/2 ML VIAL IVP STA (10:12)
--- NOTE | 2020-12-29 11:03 | ED ---
General Adult HPI - General Chief complaint: Chest Pain Stated complaint: Chest pain, abd pain Time Seen by Provider: 12/29/20 10:01 Source: patient, RN notes reviewed Mode of arrival: wheelchair Limitations: no limitations - History of Present Illness Initial comments: 25-year-old female presents emergency from chief complaint of epigastric discomfort. Patient states that the pain is worse when she lays flat or leans forward. Patient does admit that she had emesis, vomiting throughout the night which is somewhat to when she had a culvert he States it's hilar yellow in color. Patient denies any hematemesis or coffee-ground emesis. Patient had s ome diarrhea. She states she feels like she had reflux, states it feels like her intestines are pressing up into her chest. Denies any upper chest pain no palpitations no shortness of breath. - Related Data Home Medications Medication Instructions Recorded Confirmed Budesonide/Formoterol Fumarate 2 puff INHALATION RT-BID 12/29/20 12/29/20 [Symbicort 160-4.5 Mcg Inhaler] Cetirizine HCl [Zyrtec] 10 mg PO DAILY 12/29/20 12/29/20 Loratadine [Claritin] 10 mg PO HS 12/29/20 12/29/20 Montelukast Sodium [Singulair] 10 mg PO HS 12/29/20 12/29/20 Tiotropium 18 Mcg/Puff [Spiriva] 1 puff INHALATION DAILY 12/29/20 12/29/20 guaiFENesin [Mucinex] 600 mg PO BID PRN 12/29/20 12/29/20 methIMAzole [Methimazole] 5 mg PO SUSA 12/29/20 12/29/20 methIMAzole [Methimazole] 7.5 mg PO MOTUWETHFR 12/29/20 12/29/20 Previous Rx's Medication Instructions Recorded Omeprazole [PriLOSEC] 20 mg PO AC-BRKFST #14 cap 12/29/20 Ondansetron Odt [Zofran Odt] 4 mg PO Q8HR PRN #10 tab 12/29/20 Allergies Allergy/AdvReac Type Severity Reaction Status Date / Time amoxicillin Allergy Rash/Hives Verified 12/29/20 11:06 latex Allergy Rash/Hives,SHORTNESS Verified 12/29/20 11:06 OF BREATH lonnie Allergy THROAT Verified 12/29/20 11:06 CLOSED" methylprednisolone Allergy Rapid Verified 12/29/20 11:06 [From Medrol] Heart Rate monosodium glutamate [MSG] Allergy Nausea & Verified 12/29/20 11:06 Vomiting & Diarrhea Penicillins Allergy PER Verified 12/29/20 11:06 ALLERGY TEST shellfish derived [Shrimp] Allergy PER Verified 12/29/20 11:06 ALLERGY TESTING nitrofurantoin AdvReac Vomiting Verified 12/29/20 11:06 [From Macrobid] SOY,PINAPPLE Allergy PER Uncoded 12/29/20 11:06 ALLERGY TESTING tape AdvReac Itching Uncoded 12/29/20 11:06 Review of Systems ROS Statement: Those systems with pertinent positive or pertinent negative responses have been documented in the HPI. ROS Other: All systems not noted in ROS Statement are negative. Past Medical History Past Medical History: Asthma Additional Past Medical History / Comment(s): Low blood sugar, MIGRAINE HEADACHE, OCCIPTAL NEURALGIA ,ABDOMINAL PAIN, DIARRHEA AND VOMITING, graves, History of Any Multi-Drug Resistant Organisms: MRSA Date of last positivie culture/infection: 05/2017 MDRO Source:: Left lower leg-05/2017 Past Surgical History: Cholecystectomy, Tonsillectomy Past Anesthesia/Blood Transfusion Reactions: No Reported Reaction, Motion Sickness, Postoperative Nausea & Vomiting (PONV) Past Psychological History: Anxiety, Depression Smoking Status: Never smoker Past Alcohol Use History: None Reported Past Drug Use History: None Reported - Past Family History Mother Family Medical History: Cancer Additional Family Medical History / Comment(s): LUNG CANCER Sister(s) Family Medical History: Cancer General Exam Limitations: no limitations General appearance: alert, in no apparent distress Eye exam: Present: normal appearance, PERRL, EOMI. Absent: scleral icterus, conjunctival injection, periorbital swelling ENT exam: Present: normal exam, mucous membranes moist Neck exam: Present: normal inspection. Absent: tenderness, meningismus, lymphadenopathy Respiratory exam: Present: normal lung sounds bilaterally. Absent: respiratory distress, wheezes, rales, rhonchi, stridor Cardiovascular Exam: Present: regular rate, normal rhythm, normal heart sounds. Absent: systolic murmur, diastolic murmur, rubs, gallop, clicks GI/Abdominal exam: Present: soft, tenderness (Epigastric), normal bowel sounds. Absent: distended, guarding, rebound, rigid Back exam: Absent: CVA tenderness (R), CVA tenderness (L) Neurological exam: Present: alert Skin exam: Present: warm, dry, intact, normal color. Absent: rash Course Vital Signs 12/29/20 12/29/20 08:53 12:07 Temperature 97.8 F Pulse Rate 91 84 Respiratory 18 20 Rate Blood Pressure 150/101 132/80 O2 Sat by Pulse 100 96 Oximetry Medical Decision Making - Medical Decision Making This a 25-year-old female resent for upper abdominal pain, rib pain. Patient labs, imaging essentially unremarkable no specific findings years some very liver disease, no signs of infection no perforation do question patient may have an Small have a hernia-type symptoms persist discussed greatest causing her rib pain. Patient will be discharged in stable condition with follow-up with her prior surgeon. - Lab Data Result diagrams: 12/29/20 11:00 12/29/20 11:00 Lab Results 12/29/20 12/29/20 12/29/20 Range/Units 11:00 11:00 11:00 WBC 8.3 (3.8-10.6) k/uL RBC 5.13 (3.80-5.40) m/uL Hgb 15.0 (11.4-16.0) gm/dL Hct 41.6 (34.0-46.0) % MCV 81.1 (80.0-100.0) fL MCH 29.2 (25.0-35.0) pg MCHC 36.0 (31.0-37.0) g/dL RDW 13.2 (11.5-15.5) % Plt Count 289 (150-450) k/uL MPV 7.7 Neutrophils % 69 % Lymphocytes % 25 % Monocytes % 4 % Eosinophils % 0 % Basophils % 0 % Neutrophils # 5.7 (1.3-7.7) k/uL Lymphocytes # 2.1 (1.0-4.8) k/uL Monocytes # 0.4 (0-1.0) k/uL Eosinophils # 0.0 (0-0.7) k/uL Basophils # 0.0 (0-0.2) k/uL Hyperchromasia Slight Sodium (137-145) mmol/L Potassium (3.5-5.1) mmol/L Chloride (98-107) mmol/L Carbon Dioxide (22-30) mmol/L Anion Gap mmol/L BUN (7-17) mg/dL Creatinine (0.52-1.04) mg/dL Est GFR (CKD-EPI)AfAm (>60 ml/min/1.73 sqM) Est GFR (CKD-EPI)NonAf (>60 ml/min/1.73 sqM) Glucose (74-99) mg/dL Plasma Lactic Acid Dimitri (0.7-2.0) mmol/L Calcium (8.4-10.2) mg/dL Total Bilirubin (0.2-1.3) mg/dL AST (14-36) U/L ALT (4-34) U/L Alkaline Phosphatase (38-126) U/L Total Protein (6.3-8.2) g/dL Albumin (3.5-5.0) g/dL Amylase (30-110) U/L Lipase (23-300) U/L Urine Color Colorless Urine Appearance Clear (Clear) Urine pH 6.5 (5.0-8.0) Ur Specific [place] 1.005 (1.001-1.035) Urine Protein Negative (Negative) Urine Glucose (UA) Negative (Negative) Urine Ketones Negative (Negative) Urine Blood Negative (Negative) Urine Nitrite Negative (Negative) Urine Bilirubin Negative (Negative) Urine Urobilinogen <2.0 (<2.0) mg/dL Ur Leukocyte Esterase Negative (Negative) Urine HCG, Qual Not Detected (Not Detectd) 12/29/20 12/29/20 Range/Units 11:00 11:00 WBC (3.8-10.6) k/uL RBC (3.80-5.40) m/uL Hgb (11.4-16.0) gm/dL Hct (34.0-46.0) % MCV (80.0-100.0) fL MCH (25.0-35.0) pg MCHC (31.0-37.0) g/dL RDW (11.5-15.5) % Plt Count (150-450) k/uL MPV Neutrophils % % Lymphocytes % % Monocytes % % Eosinophils % % Basophils % % Neutrophils # (1.3-7.7) k/uL Lymphocytes # (1.0-4.8) k/uL Monocytes # (0-1.0) k/uL Eosinophils # (0-0.7) k/uL Basophils # (0-0.2) k/uL Hyperchromasia Sodium 138 (137-145) mmol/L Potassium 4.3 (3.5-5.1) mmol/L Chloride 107 (98-107) mmol/L Carbon Dioxide 23 (22-30) mmol/L Anion Gap 8 mmol/L BUN 16 (7-17) mg/dL Creatinine 0.65 (0.52-1.04) mg/dL Est GFR (CKD-EPI)AfAm >90 (>60 ml/min/1.73 sqM) Est GFR (CKD-EPI)NonAf >90 (>60 ml/min/1.73 sqM) Glucose 115 H (74-99) mg/dL Plasma Lactic Acid Dimitri 1.2 (0.7-2.0) mmol/L Calcium 9.5 (8.4-10.2) mg/dL Total Bilirubin 0.7 (0.2-1.3) mg/dL AST 29 (14-36) U/L ALT 22 (4-34) U/L Alkaline Phosphatase 112 (38-126) U/L Total Protein 7.4 (6.3-8.2) g/dL Albumin 4.2 (3.5-5.0) g/dL Amylase 58 (30-110) U/L Lipase 44 (23-300) U/L Urine Color Urine Appearance (Clear) Urine pH (5.0-8.0) Ur Specific [place] (1.001-1.035) Urine Protein (Negative) Urine Glucose (UA) (Negative) Urine Ketones (Negative) Urine Blood (Negative) Urine Nitrite (Negative) Urine Bilirubin (Negative) Urine Urobilinogen (<2.0) mg/dL Ur Leukocyte Esterase (Negative) Urine HCG, Qual (Not Detectd) Disposition Clinical Impression: Costochondritis, GERD (gastroesophageal reflux disease), Abdominal pain Disposition: HOME SELF-CARE Condition: Stable Instructions (If sedation given, give patient instructions): Abdominal Pain (ED) Additional Instructions: Please return to the Emergency Department if symptoms worsen or any other concerns. Prescriptions: Omeprazole [PriLOSEC] 20 mg PO AC-BRKFST #14 cap Ondansetron Odt [Zofran Odt] 4 mg PO Q8HR PRN #10 tab PRN Reason: Nausea Is patient prescribed a controlled substance at d/c from ED?: No Referrals: Nolan Alexander MD [Primary Care Provider] - 1-2 days Time of Disposition: 13:13
[2020-12-29 11:24] LABS: Appearance,Urine Clear (Clear); Bilirubin,Urine Negative (Negative); Blood,Urine Negative (Negative); Color,Urine Colorless; Glucose,Urine (UA) Negative (Negative); Ketones,Urine Negative (Negative); Leukocyte Esterase,Urine Negative (Negative); Nitrite,Urine Negative (Negative); PH, Urine 6.5 (5.0-8.0); Protein,Urine Negative (Negative); Specific Gravity,Urine 1.005 (1.001-1.035); Urobilinogen,Urine <2.0 mg/dL (<2.0)
[2020-12-29 11:32] LABS: ALT 22 U/L (4-34); AST 29 U/L (14-36); African American GFR (CKD) >90 (>60 ml/min/1.73 sqM); Albumin 4.2 g/dL (3.5-5.0); Alkaline Phosphatase 112 U/L (38-126); Amylase 58 U/L (30-110); Anion Gap 8 mmol/L; Blood Urea Nitrogen 16 mg/dL (7-17); Calcium 9.5 mg/dL (8.4-10.2); Carbon Dioxide 23 mmol/L (22-30); Chloride 107 mmol/L (98-107); Glucose 115 mg/dL (74-99); Lipase 44 U/L (23-300); Non-African American GFR(CKD) >90 (>60 ml/min/1.73 sqM); Potassium 4.3 mmol/L (3.5-5.1); Sodium 138 mmol/L (137-145); Total Bilirubin 0.7 mg/dL (0.2-1.3); Total Protein 7.4 g/dL (6.3-8.2)
--- NOTE | 2020-12-29 11:47 | XR ---
EXAMINATION TYPE: XR chest 2V, XR KUB DATE OF EXAM: 12/29/2020 COMPARISON: 05/20/2020 chest radiograph HISTORY: 25 years Female. STUDY INDICATION GIVEN: pain . TECHNIQUE: PA and lateral chest radiographs. Upright AP abdominal radiograph. IMPRESSION: CHEST: Clear lungs and pleural spaces. Normal cardiomediastinal silhouette. Unremarkable thoracic osseous st ructures. ABDOMEN: Nonobstructive bowel gas pattern with apparent thickening of the right colonic wall suggestive of col itis. No free air. 4 mm osseous density abdomen to the right of the midline be reflective of gallbladder stone. There is apparent displacement of the L5 to the left of the sacrum which is likely related to patien t rotation, correlation with history, physical examination and lumbar spine radiographs as clinically indicated.
[2020-12-29 12:09] VITALS: RESP 20
[2020-12-29 12:17] LABS: Basophils % (A) 0 %; Eosinophils % (A) 0 %; HCT 41.6 % (34.0-46.0); Hyperchromasia Slight; Lymphocytes # (A) 2.1 k/uL (1.0-4.8); Lymphocytes % (A) 25 %; MCH 29.2 pg (25.0-35.0); MCV 81.1 fL (80.0-100.0); Mean Platelet Volume 7.7; Monocytes # (A) 0.4 k/uL (0-1.0); Monocytes % (A) 4 %; Neutrophils # (A) 5.7 k/uL (1.3-7.7); Neutrophils % (A) 69 %; Platelet Count 289 k/uL (150-450); RBC 5.13 m/uL (3.80-5.40); RDW 13.2 % (11.5-15.5); WBC 8.3 k/uL (3.8-10.6)
--- NOTE | 2020-12-29 13:03 | CT ---
EXAMINATION TYPE: CT abdomen pelvis w con DATE OF EXAM: 12/29/2020 HISTORY: RUQ pain CT DLP: 1081mGycm Automated Exposure Control for Dose Reduction was Utilized. CONTRAST: CT scan of the abdomen and pelvis is performed with IV Contrast, patient injected with 100 mL of Isov ue 300. COMPARISON: None FINDINGS: LUNG BASES: No significant abnormality is appreciated. INCLUDED CARDIAC STRUCTURES: Unremarkable LIVER: Low attenuation of hepatic parenchyma compared to the spleen. Slightly heterogeneous hepatic p arenchyma without focal mass. Normal hepatic contour. GALLBLADDER : Nonvisualized, may be surgically removed, correlate with history. BILIARY TREE: No abnormal biliary ductal dilatation. PANCREAS: No significant abnormality is seen. SPLEEN: No significant abnormality is seen. ADRENALS: No significant abnormality is seen. KIDNEYS AND URETERS: There is a 3 mm calculus in the upper pole of the right kidney. There is a 2 mm calculus in the lower pole of the left kidney. No renal mass appreciated. There is no renal collectin g system dilatation. There is no dilatation of the ureters. Urinary bladder is unremarkable. ESOPHAGUS: No significant abnormality is seen. STOMACH: No significant abnormality is seen. SMALL BOWEL: No significant abnormality is seen. LARGE BOWEL: Scattered diverticula in the sigmoid colon without evidence for acute diverticulitis. APPENDIX: Not definitely identified. No inflammatory changes in the right lower quadrant. HERNIAS: No hernia seen. UTERUS/ADNEXA: No gross abnormality seen. There is trace fluid in the pelvis likely physiologic. PERITONEUM/MESENTRY: No pneumoperitoneum or ascites. LYMPH NODES: No enlarged retroperitoneal or pelvic lymph nodes are appreciated. MAJOR VASCULAR STRUCTURES: Nonaneurysmal aorta. Retroaortic course of the left renal vein. OSSEOUS STRUCTURES: 5 nonrib-bearing lumbar-type vertebral bodies. 6 vertebral body is partially sacr alized forms a pseudojoint with the left sacrum. Mild posterior translation is noted at L5-6. Sixth v ertebral body has a leftward tilt slight angulation does not appear to be affecting the superior vert ebral bodies. No acute osseous abnormalities seen. IMPRESSION: 1. 2 to 3 mm bilateral nonobstructing renal calculi. 2. Heterogeneous low attenuating hepatic parenchyma suggestive of steatosis. 3. Minimal scattered diverticula without evidence for acute diverticulitis. 4. Partial sacralization of the left side of the sixth lumbar spine vertebra. No acute osseous abnorm ality.
[2020-12-29] MEDS ORDERED: ACET/COD 300 MG/30 MG STARTER PACK 6 TAB BTL PO STA (13:18)
[2020-12-29 13:58] VITALS: BP 126/76; PULSE 94; TEMP 98
== END 2020-12-29 13:58 | disposition home or self-care (01) ==
LOC: EC 08:49
DX: M94.0 Chondrocostal junction syndrome [Tietze] (principal); K21.9 Gastro-esophageal reflux disease without esophagitis; R10.13 Epigastric pain; J45.909 Unspecified asthma, uncomplicated; Z79.51 Long term (current) use of inhaled steroids; Z91.09 Other allergy status, other than to drugs and biological substances; Z88.0 Allergy status to penicillin; Z91.040 Latex allergy status; Z91.018 Allergy to other foods; Z91.013 Allergy to seafood; Z88.8 Allergy status to other drugs, medicaments and biological substances
CPT/HCPCS: 99285; 96374; 96375; 96361; 36415; 80053; 82150; 83605; 83690; 85025; 81003; 81025; 71046; 74018; 74177; J2405; J1885; Q9967